=== PATIENT | female | born 2000 | race Caucasian/White ===

== ENCOUNTER 2024-12-21 10:09 | Inpatient (IN) | payer OTHER, SELFPAY ==
[2024-12-21] VITALS (18 sets, daily range): BP systolic 107–165; BP diastolic 63–94; PULSE 85–130; RESP 14–23; TEMP 36.2–36.9; O2SAT 97–100; BMI 23.6
--- NOTE | ~2024-12-21 | XR_ITS ---
EXAMINATION: XR chest 2V DATE: 12/21/2024 12:29 INDICATION: Dyspnea. Tachypnea. TECHNIQUE: Frontal and lateral views of the chest were obtained. COMPARISON: None. FINDINGS: There is no pneumonia, pleural effusion, or pneumothorax. The heart size is normal. IMPRESSION: 1. No acute cardiopulmonary disease. Reviewed, dictated and finalized at location B.
--- NOTE | 2024-12-21 10:32 | ECG_ITS ---
Test Date: 2024-12-21 10:36:19 Measurements Intervals [place] Rate: 137 P: 70 NE: 125 QRS: 68 QRSD: 74 T: 39 QT: 330 QTc: 499 Interpretive Statements SINUS TACHYCARDIA LOW QRS VOLTAGE IN PRECORDIAL LEADS [QRS DEFLECTION < 1.0 mV IN CHEST LEADS] SEPTAL MYOCARDIAL INFARCTION , OF INDETERMINATE AGE [40+ ms Q WAVE IN V1/V2] NONSPECIFIC ST AND T WAVE ABNORMALITY No previous ECG available for comparison Electronically Signed On 12-21-2024 13:44:57 CDT by Eileen Jiang M.D.
[2024-12-21] MEDS: SODIUM CHLORIDE 0.9% IV 2,000 ML 999 ML IV CONT (12:01)
[2024-12-21 12:11] LABS: Basophils Percent Auto 0.5 % (0.2-1.2); Hematocrit 42.3 % (37.0-47.0); Hemoglobin 14.6 g/dL (12.0-15.0); Immature Granulocyte Absolute 0.01 K/mm3 (0.00-0.031); Immature Granulocyte Percent A 0.1 % (0-0.5); Lymphocytes Absolute Auto 2.48 K/mm3 (0.9-3.2); Lymphocytes Percent Auto 31.5 % (18.3-44.2); Mean Corpuscular HGB Conc 34.5 g/dl (32-36); Mean Corpuscular Hemoglobin 31.7 pg (26-34); Mean Platelet Volume 9.5 fl (7.4-10.4); Monocytes Absolute Auto 0.4 K/mm3 (0.1-0.6); Monocytes Percent Auto 4.4 % (2.6-8.5); Neutrophils Percent Auto 63.5 % (45.5-73.1); Platelet Count Result 370 k/mm3 (150-375); Red Cell Distribution Width 13.2 % (11.5-14.5); White Blood Count 7.9 K/mm3 (4.5-10.0)
[2024-12-21 12:15] LABS: Glucose Point of Care 254 mg/dl (65-105)
[2024-12-21 12:20] LABS: Lactic Acid Reflex 0.8 mmol/L (0.7-2.0)
[2024-12-21 12:21] LABS: Alanine Aminotransferase 10 U/L (6-35); Albumin Level 4.6 g/dL (3.5-5.1); Alkaline Phosphatase 100 U/L (38-126); Anion Gap 21 mmol/L (4-12); Aspartate Amino Transferase 13 U/L (14-36); Bilirubin,Total 0.5 mg/dL (0.2-1.3); Blood Urea Nitrogen 7 mg/dL (7-17); Calcium 9.1 mg/dL (8.4-10.2); Carbon Dioxide 11 mmol/L (22-30); Chloride 105 mmol/L (98-107); Estimated CRCL calculation 123 ml/min; Estimated Glomerular Filt Rate > 60; Glucose 282 mg/dL (65-110); Lipase 57 U/L (23-300); Phosphorus 1.8 mg/dL (2.5-4.5); Potassium 3.8 mmol/L (3.4-5.0); Sodium 137 mmol/L (137-145)
[2024-12-21 12:25] LABS: Fractional Inspired Oxygen 21 %; HCO3 VBG 13.6 mEq/l (24.0-30.0); PCO2 VBG 32.9 mmHg (42.0-48.0); PO2 VBG < 27.0 mmHg (35.0-45.0)
[2024-12-21 12:26] LABS: Device ROOM AIR; pH VBG 7.233 (7.300-7.400)
[2024-12-21 12:33] LABS: NT Pro B Type Natriuretic Pept < 20 pg/mL (19.9-100); Troponin I < 0.012 ng/mL (0.000-0.034)
[2024-12-21 12:49] LABS: Add Urine Microscopic? YES; Appearance Urine Cloudy (Clear); Bacteria Urine 2+ /hpf; Bilirubin Urine Negative (Negative); Blood Urine Negative (Negative); Color Urine Yellow (Yellow); Glucose Urine UA 3+ mg/dL (Negative); Ketones Urine 4+ mg/dL (Negative); Leukocyte Esterase Ur Trace LEU/UL (Negative); Need Manual Microscopic Reviewed; Nitrate Urine Negative (Negative); Non Pathogenic Casts >20; Protein Urine 1+ mg/dL (Negative); RBC Urine 0-2 /hpf (0-2); Specific Grav Ur 1.037 (1.001-1.035); Squamous Epithelial Cell Urine Many /hpf (Few); Urobilinogen Urine 0.2 mg/dL (<2.0); WBC Urine 51-100 /hpf (0-3)
[2024-12-21 12:51] LABS: Influenza A QL RT-PCR Negative (Negative); Influenza B QL RT-PCR Negative (Negative); RSV RNA, RT-PCR Negative (Negative); SARS-CoV-2 RNA PCR Negative (Negative)
[2024-12-21 12:52] LABS: Thyroid Stimulating Hormone Reflex 0.436 uIU/mL (0.465-4.68)
[2024-12-21 13:11] LABS: BEDSIDEPREGUCG Negative (Negative)
[2024-12-21 13:15] LABS: Amphetamine Screen Urine Negative (Negative); Barbiturate Screen Urine Negative (Negative); Benzodiazepines Screen Urine Negative (Negative); Cannabinoid Screen Urine Negative (Negative); Cocaine Screen Urine Negative (Negative); Methadone Screen Urine Negative (Negative); Opiate Screen Urine Negative (Negative); Phencyclidine Screen Urine Negative (Negative)
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
--- OUTSIDE RECORDS SUMMARY | 2024-12-21 13:15 | XMS_ITS | Encounter Summary ---
Author Organization [facility] Healthcare Address [address] [place] [address] Care Team Providers Care Lead Enterprise Architect Name Role Phone Kwan Dennis MD Primary Care Provider [phone] Encounter Details Date Type Department Care Team (Late st Contact Info) Description 11/28/2024 Results Follow-Up [facility] at [address] [phone] Kathy Wade PRACTICE ARCHITECT [address] [place] [id number] Social History Tobacco Use Types Packs/Day Years Used Date Smoking Tobacco: Never Smokeless Tobacco: Never Alcohol Use Standard Drinks/Week Comments No 0 [...] on file Legal Sex Female 2:26 AM ELEVATOR DISPATCHER Gender Identity Not on file Sexual Orientation Not on file documented as of this encounter Plan of Treatment Not on file documented as of this encounter Visit Diagnoses Not on filedocumented in this encounter Care Teams Lead Enterprise Architect Relationship Specialty Start Date End Date Kwan Dennis MD [address] [place] [address] PCP - General Family Medicine 01/28/22 documented as of this encounter
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
[2024-12-21 13:18] LABS: INR 1.1; Partial Thromboplastin Time 21.9 Seconds (22.3-36.8); Prothrombin Time 14.5 Seconds (11.1-14.7)
[2024-12-21 13:27] LABS: D Dimer < 0.27 ug/mL (<0.48)
[2024-12-21 14:08] LABS: Total Triiodothyronine (T3) 0.81 NG/ML (0.97-1.69)
[2024-12-21] MEDS: levoFLOXacin 750 MG/D5W 150 ML 750 MG/150 ML BAG 100 MG IVPB (14:13)
[2024-12-21] MEDS: SODIUM CHLORIDE 0.9% IV 1,000 ML 999 ML IV CONT (14:14)
--- NOTE | 2024-12-21 14:52 | ECG_ITS ---
Test Date: 2024-12-21 15:06:26 Measurements Intervals [place] Rate: 108 P: 48 CA: 124 QRS: 48 QRSD: 74 T: 24 QT: 339 QTc: 455 Interpretive Statements SINUS TACHYCARDIA POSSIBLE LEFT ATRIAL ENLARGEMENT [-0.1mV P WAVE IN V1/V2] LOW QRS VOLTAGE IN PRECORDIAL LEADS [QRS DEFLECTION < 1.0 mV IN CHEST LEADS] SEPTAL MYOCARDIAL INFARCTION , OF INDETERMINATE AGE [40+ ms Q WAVE IN V1/V2] Compared to ECG 12/21/2024 10:36:19 ST (T wave) deviation no longer present Myocardial infarct finding still present Electronically Signed On 12-22-2024 13:55:25 CDT by Dangelo Masterson M.D.
--- NOTE | 2024-12-21 15:00 | PC.NURSE ---
Pt was given a sandwich, sugar free pudding, pretzels and some water.
[2024-12-21 15:22] LABS: Troponin I < 0.012 ng/mL (0.000-0.034)
[2024-12-21 15:52] LABS: Anion Gap 13 mmol/L (4-12); Blood Urea Nitrogen 5 mg/dL (7-17); Calcium 6.8 mg/dL (8.4-10.2); Carbon Dioxide 14 mmol/L (22-30); Chloride 111 mmol/L (98-107); Estimated CRCL calculation 173 ml/min; Estimated Glomerular Filt Rate > 60; Glucose 202 mg/dL (65-110); Potassium 3.2 mmol/L (3.4-5.0); Sodium 138 mmol/L (137-145)
--- NOTE | 2024-12-21 16:04 | ED.GENADULT ---
HPI - General Adult General Chief complaint: Arrhythmia/Palpitations Stated complaint: SOB, tachycardic Time Seen by Provider: 12/21/24 11:03 History of Present Illness HPI narrative: This is a 24-year-old female with history of type 1 diabetes presenting with shortness of breath x1 week. Two days ago the patient developed palpitations and left-sided chest pain. It is an achy pain in the left side of her chest that is nonradiating, moderate intensity constant. Patient denies fevers chills or abdominal pain. She has been urinating more often than usual. She has recently been sick with a sinus infection and her has been diagnosed with strep throat. Her sugars have been running higher than normal in the mid 200s. She has been taking more insulin to compensate. Related Data Allergies Allergy/AdvReac Type Severity Reaction Status Date / Time cefuroxime Allergy Mild rash Verified 12/21/24 11:53 codeine Allergy Mild rash Verified 12/21/24 11:53 Exam Narrative: APPEARANCE: No apparent distress. Head: atraumatic. EYES: EOMI, NOSE: Atraumatic NECK: Trachea midline RESPIRATORY: Tachypnea, clear to auscultation CARDIOVASCULAR: Tachycardic, no peripheral edema ABDOMINAL: Non-distended soft nontender, left CVA tenderness MUSCULOSKELETAl: No obvious deformities NEURO: Alert. Moving 4/4 extremities SKIN:: Hot to touch PSYCHIATRIC: Normal affect Course Vital Signs Vital signs: Vital Signs Temperature 97.2 F L 12/21/24 10:43 Pulse Rate 130 H 12/21/24 10:43 Respiratory Rate 18 12/21/24 10:43 Blood Pressure 108/69 12/21/24 10:43 Pulse Oximetry 100 12/21/24 10:43 Temperature 98 F 12/21/24 11:12 Pulse Rate 107 H 12/21/24 15:46 Respiratory Rate 18 12/21/24 15:46 Blood Pressure 116/74 12/21/24 15:46 Pulse Oximetry 98 12/21/24 15:46 Oxygen Delivery Room Air 12/21/24 15:46 Medical Decision Making [facility] Narrative Medical decision making narrative: -Course: 24-year-old female with type 1 diabetes presenting with tachypnea. Cardiopulmonary causes of dyspnea less likely with a negative chest x-ray, (-) D-dimer,bnp,trop,viral swabs. Urine was indicative of infection w/ L CVA tenderness consistent w/ pyelonephritis pyelonephritis. Patient is acidotic within initial anion gap of 21/bicarb 11 and +4 ketones in her urine. Patient given 3 L of fluid and antibiotics and repeated her BMP. No real improvement. Calcium phosphorus of been repleted. Patient has been initiated on the DKA protocol will be admitted the ICU for further management. Case discussed with Dionna and Dr. Michaud and the patient will be admitted. Vital Signs Vital Signs: Vital Signs Temperature 97.2 F L 12/21/24 10:43 Pulse Rate 130 H 12/21/24 10:43 Respiratory Rate 18 12/21/24 10:43 Blood Pressure 108/69 12/21/24 10:43 Pulse Oximetry 100 12/21/24 10:43 Temperature 98 F 12/21/24 11:12 Pulse Rate 107 H 12/21/24 15:46 Respiratory Rate 18 12/21/24 15:46 Blood Pressure 116/74 12/21/24 15:46 Pulse Oximetry 98 12/21/24 15:46 Oxygen Delivery Room Air 12/21/24 15:46 Lab Data 12/21/24 12:05 12/21/24 15:35 Labs: Lab Results 12/21/24 12/21/24 12/21/24 Range/Units 12:05 12:12 12:29 WBC 7.9 (4.5-10.0) K/mm3 RBC 4.60 (4.2-5.4) M/mm3 Hgb 14.6 (12.0-15.0) g/dL Hct 42.3 (37.0-47.0) % MCV 92.0 (80-100) fl MCH 31.7 (26-34) pg MCHC 34.5 (32-36) g/dl RDW 13.2 (11.5-14.5) % Plt Count 370 (150-375) k/mm3 MPV 9.5 (7.4-10.4) fl Immature Gran % (Auto) 0.1 (0-0.5) % Neut % (Auto) 63.5 (45.5-73.1) % Lymph % (Auto) 31.5 (18.3-44.2) % [place] % (Auto) 4.4 (2.6-8.5) % Eos % (Auto) 0.0 (0-4.4) % Baso % (Auto) 0.5 (0.2-1.2) % Lymph # (Auto) 2.48 (0.9-3.2) K/mm3 [place] # (Auto) 0.4 (0.1-0.6) K/mm3 Eos # (Auto) 0.0 (0-0.3) K/mm3 Baso # (Auto) 0.0 (0.0-0.1) K/mm3 Abs Immat Gran (auto) 0.01 (0.00-0.031) K/mm3 Absolute Neuts (auto) 5.0 (1.3-6.7) K/mm3 Absolute Nucleated RBC 0.000 (0.0-0.012) K/mm3 Nucleated RBC % 0.0 (0.0-0.2) % PT (11.1-14.7) Seconds INR APTT (22.3-36.8) Seconds D-Dimer (<0.48) ug/mL Sodium 137 (137-145) mmol/L Potassium 3.8 (3.4-5.0) mmol/L Chloride 105 (98-107) mmol/L Carbon Dioxide 11 L (22-30) mmol/L Anion Gap 21 H (4-12) mmol/L BUN 7 (7-17) mg/dL Creatinine 0.49 L (0.7-1.0) mg/dL Estim Creat Clear Calc 123 ml/min Estimated GFR > 60 (59 - ) Glucose 282 H (65-110) mg/dL POC Capillary Glucose 254 H (65-105) mg/dl Lactic Acid 0.8 (0.7-2.0) mmol/L Calcium 9.1 (8.4-10.2) mg/dL Phosphorus 1.8 L (2.5-4.5) mg/dL Magnesium 2.0 (1.6-2.3) mg/dL Total Bilirubin 0.5 (0.2-1.3) mg/dL AST 13 L (14-36) U/L ALT 10 (6-35) U/L Alkaline Phosphatase 100 (38-126) U/L Troponin I < 0.012 (0.000-0.034) ng/mL NT-Pro-B Natriuret Pep < 20 (19.9-100) pg/mL Total Protein 8.0 (6.3-8.2) g/dL Albumin 4.6 (3.5-5.1) g/dL Lipase 57 (23-300) U/L TSH (Reflex) 0.436 L (0.465-4.68) uIU/mL Free T4 1.10 (0.78-2.19) ng/dL Total T3 0.81 L (0.97-1.69) NG/ML Urine Color Yellow (Yellow) Urine Appearance Cloudy H (Clear) Urine pH 6.0 (5.0-9.0) Ur Specific [place] 1.037 H (1.001-1.035) Urine Protein 1+ H (Negative) mg/dL Urine Glucose (UA) 3+ H (Negative) mg/dL Urine Ketones 4+ H (Negative) mg/dL Ur Blood (Man) Negative (Negative) Urine Nitrate Negative (Negative) Urine Bilirubin Negative (Negative) Urine Urobilinogen 0.2 (<2.0) mg/dL Add Ur Microanalysis Reviewed Leukocyte Esterase Rfl Trace H (Negative) ESAU/UL Urine RBC 0-2 (0-2) /hpf Urine WBC 51-100 H (0-3) /hpf Ur Squamous Epith Cells Many H (Few) /hpf Urine Bacteria 2+ H /hpf Urine Casts >20 POC Urine HCG, Qual (Negative) Urine Opiates Screen Negative (Negative) Urine Methadone Screen Negative (Negative) Ur Barbiturates Screen Negative (Negative) Ur Phencyclidine Scrn Negative (Negative) Ur Amphetamine Screen Negative (Negative) U Benzodiazepines Scrn Negative (Negative) Urine Cocaine Screen Negative (Negative) U Cannabinoids Screen Negative (Negative) Influenza A (RT-PCR) Negative (Negative) Influenza B (RT-PCR) Negative (Negative) RSV (RT-PCR) Negative (Negative) SARS-CoV-2 RNA (RT-PCR) Negative (Negative) 12/21/24 12/21/24 12/21/24 Range/Units 12:59 13:09 14:50 WBC (4.5-10.0) K/mm3 RBC (4.2-5.4) M/mm3 Hgb (12.0-15.0) g/dL Hct (37.0-47.0) % MCV (80-100) fl MCH (26-34) pg MCHC (32-36) g/dl RDW (11.5-14.5) % Plt Count (150-375) k/mm3 MPV (7.4-10.4) fl Immature Gran % (Auto) (0-0.5) % Neut % (Auto) (45.5-73.1) % Lymph % (Auto) (18.3-44.2) % [place] % (Auto) (2.6-8.5) % Eos % (Auto) (0-4.4) % Baso % (Auto) (0.2-1.2) % Lymph # (Auto) (0.9-3.2) K/mm3 [place] # (Auto) (0.1-0.6) K/mm3 Eos # (Auto) (0-0.3) K/mm3 Baso # (Auto) (0.0-0.1) K/mm3 Abs Immat Gran (auto) (0.00-0.031) K/mm3 Absolute Neuts (auto) (1.3-6.7) K/mm3 Absolute Nucleated RBC (0.0-0.012) K/mm3 Nucleated RBC % (0.0-0.2) % PT 14.5 (11.1-14.7) Seconds INR 1.1 APTT 21.9 L (22.3-36.8) Seconds D-Dimer < 0.27 (<0.48) ug/mL Sodium (137-145) mmol/L Potassium (3.4-5.0) mmol/L Chloride (98-107) mmol/L Carbon Dioxide (22-30) mmol/L Anion Gap (4-12) mmol/L BUN (7-17) mg/dL Creatinine (0.7-1.0) mg/dL Estim Creat Clear Calc ml/min Estimated GFR (59 - ) Glucose (65-110) mg/dL POC Capillary Glucose (65-105) mg/dl Lactic Acid (0.7-2.0) mmol/L Calcium (8.4-10.2) mg/dL Phosphorus (2.5-4.5) mg/dL Magnesium (1.6-2.3) mg/dL Total Bilirubin (0.2-1.3) mg/dL AST (14-36) U/L ALT (6-35) U/L Alkaline Phosphatase (38-126) U/L Troponin I < 0.012 (0.000-0.034) ng/mL NT-Pro-B Natriuret Pep (19.9-100) pg/mL Total Protein (6.3-8.2) g/dL Albumin (3.5-5.1) g/dL Lipase (23-300) U/L TSH (Reflex) (0.465-4.68) uIU/mL Free T4 (0.78-2.19) ng/dL Total T3 (0.97-1.69) NG/ML Urine Color (Yellow) Urine Appearance (Clear) Urine pH (5.0-9.0) Ur Specific [place] (1.001-1.035) Urine Protein (Negative) mg/dL Urine Glucose (UA) (Negative) mg/dL Urine Ketones (Negative) mg/dL Ur Blood (Man) (Negative) Urine Nitrate (Negative) Urine Bilirubin (Negative) Urine Urobilinogen (<2.0) mg/dL Add Ur Microanalysis Leukocyte Esterase Rfl (Negative) ESAU/UL Urine RBC (0-2) /hpf Urine WBC (0-3) /hpf Ur Squamous Epith Cells (Few) /hpf Urine Bacteria /hpf Urine Casts POC Urine HCG, Qual Negative (Negative) Urine Opiates Screen (Negative) Urine Methadone Screen (Negative) Ur Barbiturates Screen (Negative) Ur Phencyclidine Scrn (Negative) Ur Amphetamine Screen (Negative) U Benzodiazepines Scrn (Negative) Urine Cocaine Screen (Negative) U Cannabinoids Screen (Negative) Influenza A (RT-PCR) (Negative) Influenza B (RT-PCR) (Negative) RSV (RT-PCR) (Negative) SARS-CoV-2 RNA (RT-PCR) (Negative) 12/21/24 Range/Units 15:35 WBC (4.5-10.0) K/mm3 RBC (4.2-5.4) M/mm3 Hgb (12.0-15.0) g/dL Hct (37.0-47.0) % MCV (80-100) fl MCH (26-34) pg MCHC (32-36) g/dl RDW (11.5-14.5) % Plt Count (150-375) k/mm3 MPV (7.4-10.4) fl Immature Gran % (Auto) (0-0.5) % Neut % (Auto) (45.5-73.1) % Lymph % (Auto) (18.3-44.2) % [place] % (Auto) (2.6-8.5) % Eos % (Auto) (0-4.4) % Baso % (Auto) (0.2-1.2) % Lymph # (Auto) (0.9-3.2) K/mm3 [place] # (Auto) (0.1-0.6) K/mm3 Eos # (Auto) (0-0.3) K/mm3 Baso # (Auto) (0.0-0.1) K/mm3 Abs Immat Gran (auto) (0.00-0.031) K/mm3 Absolute Neuts (auto) (1.3-6.7) K/mm3 Absolute Nucleated RBC (0.0-0.012) K/mm3 Nucleated RBC % (0.0-0.2) % PT (11.1-14.7) Seconds INR APTT (22.3-36.8) Seconds D-Dimer (<0.48) ug/mL Sodium 138 (137-145) mmol/L Potassium 3.2 L (3.4-5.0) mmol/L Chloride 111 H (98-107) mmol/L Carbon Dioxide 14 L (22-30) mmol/L Anion Gap 13 H (4-12) mmol/L BUN 5 L (7-17) mg/dL Creatinine 0.33 L (0.7-1.0) mg/dL Estim Creat Clear Calc 173 ml/min Estimated GFR > 60 (59 - ) Glucose 202 H (65-110) mg/dL POC Capillary Glucose (65-105) mg/dl Lactic Acid (0.7-2.0) mmol/L Calcium 6.8 L (8.4-10.2) mg/dL Phosphorus (2.5-4.5) mg/dL Magnesium (1.6-2.3) mg/dL Total Bilirubin (0.2-1.3) mg/dL AST (14-36) U/L ALT (6-35) U/L Alkaline Phosphatase (38-126) U/L Troponin I (0.000-0.034) ng/mL NT-Pro-B Natriuret Pep (19.9-100) pg/mL Total Protein (6.3-8.2) g/dL Albumin (3.5-5.1) g/dL Lipase (23-300) U/L TSH (Reflex) (0.465-4.68) uIU/mL Free T4 (0.78-2.19) ng/dL Total T3 (0.97-1.69) NG/ML Urine Color (Yellow) Urine Appearance (Clear) Urine pH (5.0-9.0) Ur Specific [place] (1.001-1.035) Urine Protein (Negative) mg/dL Urine Glucose (UA) (Negative) mg/dL Urine Ketones (Negative) mg/dL Ur Blood (Man) (Negative) Urine Nitrate (Negative) Urine Bilirubin (Negative) Urine Urobilinogen (<2.0) mg/dL Add Ur Microanalysis Leukocyte Esterase Rfl (Negative) ESAU/UL Urine RBC (0-2) /hpf Urine WBC (0-3) /hpf Ur Squamous Epith Cells (Few) /hpf Urine Bacteria /hpf Urine Casts POC Urine HCG, Qual (Negative) Urine Opiates Screen (Negative) Urine Methadone Screen (Negative) Ur Barbiturates Screen (Negative) Ur Phencyclidine Scrn (Negative) Ur Amphetamine Screen (Negative) U Benzodiazepines Scrn (Negative) Urine Cocaine Screen (Negative) U Cannabinoids Screen (Negative) Influenza A (RT-PCR) (Negative) Influenza B (RT-PCR) (Negative) RSV (RT-PCR) (Negative) SARS-CoV-2 RNA (RT-PCR) (Negative) ABG Data ABG results: 12/21/24 12:21 VBG pH 7.233 L* VBG pCO2 32.9 L VBG pO2 < 27.0 L VBG HCO3 13.6 L O2 Delivery Device Room air O2 Liters/Min Not Reportable FiO2 21 Critical Care Time Critical Care Time Critical Care Time: Yes Total Critical Care Time: 45 Discharge Plan Discharge Clinical Impression: Pyelonephritis, DKA (diabetic ketoacidosis) Patient Disposition: Still a Patient Condition: Stable Patient Language: Latvian Follow-up/Referrals: UNKNOWN,DOCTOR [Primary Care Provider] -
[2024-12-21 16:46] LABS: Glucose Point of Care 282 mg/dl (65-105)
[2024-12-21] MEDS: POTASSIUM/PHOSPHORUS/SODIUM 1.5 GM PACKET 1 PACKET PO (17:06)
[2024-12-21] MEDS: POTASSIUM CHLORIDE INJ 40 MEQ in SODIUM CHLORIDE 0.9% IV 500 ML 130 MEQ IVPB (17:06)
[2024-12-21] MEDS: CALCIUM GLUC 2,000 MG/NS 100ML 2,000 MG/100 ML BAG 100 MG IVPB (17:06)
[2024-12-21] MEDS: LACTATED RINGERS 1,000 ML 250 ML IV CONT (17:07)
[2024-12-21] MEDS: POTASSIUM CHLORIDE 20 MEQ PACKET (FOR LIQUID) 40 MEQ PO (17:07)
--- NOTE | 2024-12-21 17:40 | P.HP_ITS ---
H&P: HPI History of Present Illness Date/Time: 12/21/24 17:40 Chief Complaint: Shortness of breath racing heart. Narrative: This is a pleasant 24-year-old female type 1 diabetes mellitus who presented to the emergency department with complaints of shortness of breath and racing heart. The patient provides the following history. Nearly a month ago she had a sinus infection and took antibiotics however does not feel as though she ever got back to baseline. Her diabetes is not well controlled with a reported recent hemoglobin A1c of 12.1% however the last week or so however she has noticed that her glucose has been higher than usual. Despite increasing her insulin boluses, her glucose has remained high. These past several days she has developed sensations of racing heart and mild shortness of breath. She also reports urinary urgency and frequency as well as aching discomfort in the left mid back. She has had chills but denies fever and sweats. She also denies blurry vision, sore throat, cough, chest and pleuritic pain, vomiting, and diarrhea. In the ED: Vital signs on arrival include a temperature of 97.2?, blood pressure 108/69, pulse 130, respiratory 18, SpO2 100% on room air. VBG showed a pH of 7.233, pCO2 32.9, HC03 13.6. Labs were significant for WBC count 7.9, hemoglobin 14.6, sodium 137, potassium 3.8, chloride 105, carbon dioxide 11, anion gap 21, creatinine 0.49, glucose 282, phosphorus 1.8. Urinalysis was positive for 1+ protein, 3+ glucose, 4+ ketones, trace leukocyte esterase, 50 to 100 WBC, 2+ bacteria, and many squamous cells. Chest x-ray showed no acute cardiopulmonary disease. She was given a 3000 mL normal saline bolus and potassium supplementation. She was also given levofloxacin for suspected urinary tract infection. She is being admitted to the ICU in this setting with DKA although she is not yet on insulin drip until her potassium has corrected. Review of Systems Review of Systems: 12 systems were reviewed and are negativ e except for as per HPI. [facility] Past Medical History Medical History (Updated 12/21/24 @ 21:37 by Carissa Quiñones PA-C) Type I diabetes mellitus Surgical History Surgical History (Updated 12/21/24 @ 21:37 by Carissa Quiñones PA-C) History of section History of eye surgery several eye surgeries as a child for what sounds like strabismus Family History Family History Mother Breast cancer Thyroid nodule Graves' disease Jeanne's disease Hypothyroidism Social History Social History (Updated 12/21/24 @ 21:38 by Carissa Quiñones PA-C) Social History: Surrogate medical decision maker: Miki Rigo, spouse. Code status: Full code. Smoking status: Never smoker Alcohol intake: never Substance use: never Do You Feel Safe in your Home?: Yes Lack of Transportation: No Lack of Food: Never True Current Housing: I Have Housing Concerned About Future Housing: No Difficulty Paying Gas/Electric Bills: No Difficulty Paying for Meds: No Currently Unemployed: No Education: Trade/Vocational Certificate Difficulty w/ Childcare or Family Care: No Additional living arrangements comments: Lives with and their 6-year-old daughter in [place]. Spiritual care concerns: No Meds Home Medications and Allergies Home Medications ?Medication ?Instructions ?Recorded ?Confirmed ?Type insulin lispro 100 unit/mL 1 sliding scale dose subcut 12/21/24 12/21/24 History subcutaneous solution (Humalog USEASDIRECTD U-100 Insulin) Allergies Allergy/AdvReac Type Severity Reaction Status Date / Time cefuroxime Allergy Mild rash Verified 12/21/24 18:33 codeine Allergy Mild rash Verified 12/21/24 18:33 Vital Signs Vital Signs - 24 hr 12/21/24 10:43 12/21/24 11:11 12/21/24 11:12 Temperature 97.2 F L 98 F Pulse Rate 130 H 115 H 110 H Respiratory Rate 18 18 23 H Blood Pressure 108/69 128/72 128/72 Pulse Oximetry 100 100 100 Oxygen Delivery Room Air 12/21/24 11:18 12/21/24 11:30 12/21/24 13:09 Temperature Pulse Rate 101 H 102 H Respiratory Rate 16 15 Blood Pressure 113/77 120/71 Pulse Oximetry 100 100 100 Oxygen Delivery Room Air 12/21/24 13:30 12/21/24 14:00 12/21/24 14:16 Temperature Pulse Rate 97 95 97 Respiratory Rate 17 16 15 Blood Pressure 126/75 120/75 120/75 Pulse Oximetry 100 100 100 Oxygen Delivery 03/12/25 14:30 12/21/24 15:46 12/21/24 15:46 Temperature Pulse Rate 95 107 H Respiratory Rate 14 18 Blood Pressure 111/68 116/74 Pulse Oximetry 99 98 98 Oxygen Delivery Room Air 12/21/24 17:11 Temperature Pulse Rate 104 H Respiratory Rate 15 Blood Pressure 107/63 Pulse Oximetry 100 Oxygen Delivery Exam Narrative: General: Mildly ill-appearing female sitting up in bed in no acute distress. Weight: 56.7 kg. BMI: 23.6. HEENT: PERRL, EOMI. Sclera anicteric. Tacky mucous membranes. Neck: Supple. Respiratory: Lungs are clear to auscultation bilaterally. Cardiovascular: Tachycardic with normal S1-S2. Gastrointestinal: Abdomen is soft, nontender, and nondistended with positive bowel sounds. Left-sided CVA tenderness. Skin: Warm and dry. Extremities: No cyanosis, clubbing, or edema. Radial and pedal pulses intact. Neurological: Alert. Cranial nerves 2-12 are grossly intact. No gross focal deficits to casual conversation. Psychiatric: Pleasant and cooperative with normal mood and affect. Judgment and insight intact. H&P: Results Labs Labs: Short CBC 12/21/24 Range/Units 12:05 WBC 7.9 (4.5-10.0) K/mm3 Hgb 14.6 (12.0-15.0) g/dL Hct 42.3 (37.0-47.0) % Plt Count 370 (150-375) k/mm3 BMP 12/21/24 12/21/24 12:05 15:35 Sodium 137 138 Potassium 3.8 3.2 L Chloride 105 111 H Carbon Dioxide 11 L 14 L BUN 7 5 L Creatinine 0.49 L 0.33 L Glucose 282 H 202 H Calcium 9.1 6.8 L Cardiac Enzymes 12/21/24 12/21/24 Range/Units 12:05 14:50 Troponin I < 0.012 < 0.012 (0.000-0.034) ng/mL Liver Function 12/21/24 Range/Units 12:05 Total Bilirubin 0.5 (0.2-1.3) mg/dL AST 13 L (14-36) U/L ALT 10 (6-35) U/L Alkaline Phosphatase 100 (38-126) U/L Albumin 4.6 (3.5-5.1) g/dL Urine 12/21/24 Range/Units 12:29 Urine Color Yellow (Yellow) Urine Appearance Cloudy H (Clear) Urine pH 6.0 (5.0-9.0) Ur Specific [place] 1.037 H (1.001-1.035) Urine Protein 1+ H (Negative) mg/dL Urine Glucose (UA) 3+ H (Negative) mg/dL Impressions Chest X-Ray 12/21/24 12:32 IMPRESSION: 1. No acute cardiopulmonary disease. ABG ABG results: 12/21/24 12:21 VBG pH 7.233 L* VBG pCO2 32.9 L VBG pO2 < 27.0 L VBG HCO3 13.6 L O2 Delivery Device Room air O2 Liters/Min Not Reportable FiO2 21 Assessment and Plan Assessment and plan (1) Diabetic ketoacidosis: Code(s): E11.10 - Type 2 diabetes mellitus with ketoacidosis without coma Status: Acute Assessment and Plan: Patient presents with hyperglycemia, metabolic acidosis with elevated anion gap (21), and 4+ ketones in the urine. * Anion gap improved with 3 L normal saline though patient was then hypokalemic. * Potassium was replaced and repeat labs revealed closure of anion gap though serum CO2 was still 14. * Discussed with the historian dramatic arts, will give a Lantus dose equivalent to her basal rate to night. * Moderate dose sliding scale insulin q.4 hours throughout the night. (2) Urinary tract infection: Code(s): N39.0 - Urinary tract infection, site not specified Status: Acute Assessment and Plan: Patient complains of urinary frequency and has left CVA tenderness. Urinalysis was positive for leukocyte esterase, increased WBCs, and bacteria however moderate squamous cells noted. * Continue empiric levofloxacin. * Urine cultures pending. (3) Hypokalemia: Code(s): E87.6 - Hypokalemia Status: Acute Assessment and Plan: Potassium was replaced and will be monitored. (4) Type I diabetes mellitus: Code(s): E10.9 - Type 1 diabetes mellitus without complications Status: Acute Assessment and Plan: Patient is on insulin pump at home but is poorly controlled with reported A1c of 12.1% recently. * Lantus to be given this evening as detailed above. * Dietitian and informatics educator consulted. Quality VTE Prophylaxis VTE prophylaxis: pharmacologic ordered Hospitalist MIPS Advance Care Plan I have confirmed that the patient's Advanced Care Plan is present, code status is documented, or surrogate decision maker is listed in patient medical record.: Yes Medication Reconciliation I have utilized all available resources to obtain, update and review the patients current medications (includes all prescriptions, OTC, herbals, cannabis, and nutritional supplements).: Yes Critical Care Time Critical Care Time: Yes Total Critical Care Time: 50 Attestation: Due to a high probability of clinically significant, life threatening deterioration, the patient required my highest level of preparedness to intervene emergently and I personally spent this critical care time directly and personally managing the patient. This critical care time included obtaining a history; examining the patient; pulse oximetry; ordering and review of studies; arranging urgent treatment with development of a management plan; evaluation of patient's response to treatment; frequent reassessment; and discussions with other providers. It was exclusive of separately billable procedures and treating other patients and teaching time. Please see Assessment and Plan section and the rest of the note for further information on patient assessment and treatment.
[2024-12-21 18:19] LABS: Glucose Point of Care 238 mg/dl (65-105)
--- NOTE | 2024-12-21 18:19 | ADMGEN ---
This patient, Shaye Sierra, was admitted to Intensive Care Unit-9. Patient/family oriented to hospital policies and general routines including ID bracelet, bed and alarms, visiting hours, pain management, procedures, bathroom and other care routines, personal items, smoking policy, room service/diet, and visiting hours. Information on how to activate the Rapid Response Team has been discussed. Patient/Family are encouraged to report perceived risks to care and to ask questions if they do not understand what they are told or what they should do.
[2024-12-21 19:07] LABS: Glucose Point of Care 200 mg/dl (65-105)
[2024-12-21 20:01] LABS: MRSA (PCR) NOT DETECTED (NOT DETECTE)
[2024-12-21 20:10] LABS: Glucose Point of Care 210 mg/dl (65-105)
[2024-12-21 20:15] LABS: Anion Gap 12 mmol/L (4-12); Blood Urea Nitrogen 3 mg/dL (7-17); Carbon Dioxide 14 mmol/L (22-30); Chloride 110 mmol/L (98-107); Estimated CRCL calculation 143 ml/min; Estimated Glomerular Filt Rate > 60; Glucose 208 mg/dL (65-110); Sodium 136 mmol/L (137-145)
[2024-12-21 21:02] LABS: Glucose Point of Care 198 mg/dl (65-105)
[2024-12-21 21:29] LABS: Magnesium 1.6 mg/dL (1.6-2.3)
[2024-12-21] MEDS: LACTATED RINGERS 1,000 ML 75 ML IV CONT (21:48)
[2024-12-21 21:53] LABS: Glucose Point of Care 180 mg/dl (65-105)
[2024-12-21] MEDS: INSULIN GLARGINE (*BKC) 100 UNITS/ML 20 UNITS SUB-Q (22:37)
[2024-12-21] MEDS: ACETAMINOPHEN 325 MG TABLET 650 MG PO (22:50)
[2024-12-22] VITALS (10 sets, daily range): BP systolic 105–123; BP diastolic 73–84; PULSE 74–115; RESP 15–19; TEMP 36.7–37.1; O2SAT 98–100
[2024-12-22 01:42] LABS: Anion Gap 13 mmol/L (4-12); Calcium 7.6 mg/dL (8.4-10.2); Carbon Dioxide 14 mmol/L (22-30); Chloride 106 mmol/L (98-107); Estimated CRCL calculation 133 ml/min; Estimated Glomerular Filt Rate > 60; Glucose 189 mg/dL (65-110); Phosphorus 2.1 mg/dL (2.5-4.5); Potassium 3.2 mmol/L (3.4-5.0); Sodium 133 mmol/L (137-145)
[2024-12-22 01:43] LABS: Add Urine Microscopic? YES; Appearance Urine Clear (Clear); Bacteria Urine None Seen /hpf; Bilirubin Urine Negative (Negative); Blood Urine Negative (Negative); Color Urine Yellow (Yellow); Glucose Urine UA 3+ mg/dL (Negative); Ketones Urine 4+ mg/dL (Negative); Leukocyte Esterase Ur Trace LEU/UL (Negative); Nitrate Urine Negative (Negative); Non Pathogenic Casts 0-2; Protein Urine Negative (Negative); RBC Urine 0-2 /hpf (0-2); Specific Grav Ur 1.016 (1.001-1.035); Squamous Epithelial Cell Urine Occasional /hpf (Few); Urobilinogen Urine 0.2 mg/dL (<2.0); pH Urine 5.5 (5.0-9.0)
--- NOTE | 2024-12-22 01:53 | PC.NURSE ---
Call placed to Dr. Michaud regarding pt's BMP results, CO2, GAP, Potassium. No new orders at this time.
[2024-12-22] MEDS: POTASSIUM PHOS,M-BASIC-D-BASIC 40 MMOL in SODIUM CHLORIDE 0.9% IV 250 ML 43.89 MMOL IVPB (02:06)
[2024-12-22] MEDS: INSULIN ASPART (*BKC) 100 UNITS/ML SUB-Q (02:06)
[2024-12-22 02:09] LABS: Blood Urea Nitrogen < 2 mg/dL (7-17)
[2024-12-22 04:34] LABS: Glucose Point of Care 203 mg/dl (65-105)
[2024-12-22 06:29] LABS: Hematocrit 37.8 % (37.0-47.0); Hemoglobin 13.1 g/dL (12.0-15.0); Mean Corpuscular HGB Conc 34.7 g/dl (32-36); Mean Corpuscular Hemoglobin 31.8 pg (26-34); Mean Corpuscular Volume 91.7 fl (80-100); Mean Platelet Volume 9.4 fl (7.4-10.4); Platelet Count Result 275 k/mm3 (150-375); Red Blood Count 4.12 M/mm3 (4.2-5.4); Red Cell Distribution Width 13.3 % (11.5-14.5); White Blood Count 6.7 K/mm3 (4.5-10.0)
[2024-12-22 06:45] LABS: Alanine Aminotransferase 8 U/L (6-35); Alkaline Phosphatase 71 U/L (38-126); Anion Gap 14 mmol/L (4-12); Aspartate Amino Transferase 12 U/L (14-36); Bilirubin,Total 0.5 mg/dL (0.2-1.3); Calcium 7.5 mg/dL (8.4-10.2); Carbon Dioxide 14 mmol/L (22-30); Chloride 107 mmol/L (98-107); Estimated CRCL calculation 128 ml/min; Estimated Glomerular Filt Rate > 60; Glucose 186 mg/dL (65-110); Magnesium 1.5 mg/dL (1.6-2.3); Phosphorus 3.9 mg/dL (2.5-4.5); Potassium 3.7 mmol/L (3.4-5.0); Sodium 135 mmol/L (137-145)
[2024-12-22 06:49] LABS: Blood Urea Nitrogen < 2 mg/dL (7-17)
[2024-12-22] MEDS: ACETAMINOPHEN 325 MG TABLET 650 MG PO (06:49)
[2024-12-22 06:59] LABS: Glucose Point of Care 181 mg/dl (65-105)
--- NOTE | 2024-12-22 08:42 | P.CONIN_ITS ---
Assessment and Plan Assessment and plan (1) Urinary tract infection: Code(s): N39.0 - Urinary tract infection, site not specified Status: Acute Assessment and Plan: UA abnormal insisted of UTI. Patient on Levaquin that was started in the ER. I will check urine culture (2) Hypokalemia: Code(s): E87.6 - Hypokalemia Status: Acute Assessment and Plan: Patient is currently receiving replacement (3) Diabetic ketoacidosis: Code(s): E11.10 - Type 2 diabetes mellitus with ketoacidosis without coma Status: Acute Assessment and Plan: Patient presented with labs concerning of DKA. With initial IV insulin bolus and IV fluid bolus patient 9 gap had closed. Patient was started on subcutaneous insulin but overnight her anion gap has opened up again. And acidosis persists I will start patient on insulin infusion with IV fluids with dextrose I will order serial labs Replace electrolytes as needed Consult dietitian and health promotion educator Will plan to transition to patient's insulin pump directly once her anion gap is completely closed and acidosis improved. She may need increase in her basal rate of insulin on her insulin pump (4) Abnormal thyroid blood test: Code(s): R79.89 - Other specified abnormal findings of blood chemistry Status: Acute Assessment and Plan: TSH was low, free T4 was normal and free T3 level was low on check in the ER Patient states her physician regularly monitors her thyroid function and they have been normal as an outpatient. I requested patient to get them rechecked in 4 weeks as an outpatient to a certain whether thyroid function normalizes considering this may be due to current illness Plan DVT prophylaxis -Lovenox Nutrition -clear liquid diet Code Status - Full Code Total Critical Care Time - 30 minutes Due to a high probability of clinically significant, life threatening deterioration, the patient required my highest level of preparedness to intervene emergently and I personally spent this critical care time directly and personally managing the patient. This critical care time included obtaining a history; examining the patient; pulse oximetry; ordering and review of studies; arranging urgent treatment with development of a management plan; evaluation of patient's response to treatment; frequent reassessment; and discussions with other providers. It was exclusive of separately billable procedures and treating other patients and teaching time. Please see Assessment and Plan section and the rest of the note for further information on patient assessment and treatment Quality Control Lab Tech Consult Note Consult date: 12/22/24 Reason for consult: DKA, UTI HPI: Shaye Sierra is a 24 year old female female type 1 diabetes mellitus on insulin pump with basal rate of 0.8 units/hour presented to ER yesterday with complaints of shortness of breath and racing heart. Patient states that Nearly a month ago she had a sinus infection and took antibiotics however does not feel as though she ever got back to baseline. Her diabetes is not well controlled with a reported recent hemoglobin A1c of 12.1% in blood sugars often running above 200 despite her being on insulin pump. She was never on any steroids. Despite increasing her insulin boluses, her glucose has remained high. These past several days she has developed sensations of racing heart and mild shortness of breath. She also reports urinary urgency and frequency as well as aching discomfort in the left mid back. She has had chills but denies fever and sweats. She also denies blurry vision, sore throat, cough, chest and pleuritic pain, vomiting, and diarrhea. Workup in the ER showed Vital signs on arrival include a temperature of 97.2?, blood pressure 108/69, pulse 130, respiratory 18, SpO2 100% on room air. VBG showed a pH of 7.233, pCO2 32.9, HC03 13.6. Labs were significant for WBC count 7.9, hemoglobin 14.6, sodium 137, potassium 3.8, chloride 105, carbon dioxide 11, anion gap 21, creatinine 0.49, glucose 282, phosphorus 1.8. Urinalysis was positive for 1+ protein, 3+ glucose, 4+ ketones, trace leukocyte esterase, 50 to 100 WBC, 2+ bacteria, and many squamous cells. Chest x-ray showed no acute cardiopulmonary disease. She was given a 3000 mL normal saline bolus and potassium supplementation. She was also given levofloxacin for suspected urinary tract infection. She is being admitted to the ICU in this setting with DKA although she is not yet on insulin drip until her potassium has corrected. Upon arrival to ICU patient's anion gap had closed and decision was made to put patient on subcutaneous insulin. Patient was given Lantus and was started on sliding scale. Will repeat BMP showed opening up a benign gap. This morning patient states she feels much better and denies any new complaints. She states her symptoms have resolved. She is hungry and would like to eat food. Patient denies fever, chest pain, shortness of breath, cough, nausea vomiting, abdominal pain,, diarrhea, headache or constipation. All other systems were reviewed and were negative Review of Systems 2 Review of Systems: All systems reviewed & are unremarkable except as noted in HPI and below (HPI) [facility] Past Medical History Medical History Type I diabetes mellitus Surgical History Surgical History History of section History of eye surgery several eye surgeries as a child for what sounds like strabismus Family History Family History Mother Breast cancer Thyroid nodule Graves' disease Jeanne's disease Hypothyroidism Social History Social History Social History: Surrogate medical decision maker: Miki Sierra, spouse. Code status: Full code. Smoking status: Never smoker Alcohol intake: never Substance use: never Do You Feel Safe in your Home?: Yes Lack of Transportation: No Lack of Food: Never True Current Housing: I Have Housing Concerned About Future Housing: No Difficulty Paying Gas/Electric Bills: No Difficulty Paying for Meds: No Currently Unemployed: No Education: Trade/Vocational Certificate Difficulty w/ Childcare or Family Care: No Additional living arrangements comments: Lives with and their 6-year-old daughter in [place]. Spiritual care concerns: No Meds Home Medications and Allergies Home Medications ?Medication ?Instructions ?Recorded ?Confirmed ?Type insulin lispro 100 unit/mL 1 sliding scale dose subcut 12/21/24 12/21/24 History subcutaneous solution (Humalog USEASDIRECTD U-100 Insulin) Allergies Allergy/AdvReac Type Severity Reaction Status Date / Time cefuroxime Allergy Mild rash Verified 12/21/24 18:33 codeine Allergy Mild rash Verified 12/21/24 18:33 Vital Signs Vital Signs - 24 hr 12/21/24 10:43 12/21/24 11:11 12/21/24 11:12 Temperature 36.2 C L 36.6 C Pulse Rate 130 H 115 H 110 H Respiratory Rate 18 18 23 H Blood Pressure 108/69 128/72 128/72 Pulse Oximetry 100 100 100 Oxygen Delivery Room Air Fraction of Inspired Oxygen 12/21/24 11:18 12/21/24 11:30 12/21/24 13:09 Temperature Pulse Rate 101 H 102 H Respiratory Rate 16 15 Blood Pressure 113/77 120/71 Pulse Oximetry 100 100 100 Oxygen Delivery Room Air Fraction of Inspired Oxygen 12/21/24 13:30 12/21/24 14:00 12/21/24 14:16 Temperature Pulse Rate 97 95 97 Respiratory Rate 17 16 15 Blood Pressure 126/75 120/75 120/75 Pulse Oximetry 100 100 100 Oxygen Delivery Fraction of Inspired Oxygen 12/21/24 14:30 12/21/24 15:46 12/21/24 15:46 Temperature Pulse Rate 95 107 H Respiratory Rate 14 18 Blood Pressure 111/68 116/74 Pulse Oximetry 99 98 98 Oxygen Delivery Room Air Fraction of Inspired Oxygen 12/21/24 17:11 12/21/24 17:50 12/21/24 18:16 Temperature 36.8 C Pulse Rate 104 H 104 H 102 H Respiratory Rate 15 18 18 Blood Pressure 107/63 108/68 165/94 H Pulse Oximetry 100 100 100 Oxygen Delivery Fraction of Inspired Oxygen 12/21/24 18:29 12/21/24 18:29 12/21/24 20:00 Temperature 36.9 C Pulse Rate 104 H 101 H 99 Respiratory Rate 18 18 Blood Pressure 110/74 Pulse Oximetry 100 100 Oxygen Delivery Room Air Fraction of Inspired Oxygen 12/21/24 20:00 12/21/24 20:00 12/21/24 20:29 Temperature Pulse Rate 96 Respiratory Rate Blood Pressure Pulse Oximetry 100 100 Oxygen Delivery Room Air Room Air Fraction of Inspired Oxygen 21 12/21/24 22:00 12/21/24 22:00 12/22/24 00:00 Temperature 36.9 C 37.1 C Pulse Rate 85 93 80 Respiratory Rate 21 H 18 Blood Pressure 131/78 119/74 Pulse Oximetry 97 99 Oxygen Delivery Fraction of Inspired Oxygen 12/22/24 00:00 12/22/24 00:00 12/22/24 02:00 Temperature 37.0 C Pulse Rate 93 86 Respiratory Rate 18 Blood Pressure 122/76 Pulse Oximetry 99 100 Oxygen Delivery Room Air Fraction of Inspired Oxygen 12/22/24 02:00 12/22/24 04:00 12/22/24 04:00 Temperature Pulse Rate 77 90 Respiratory Rate 18 Blood Pressure 123/74 Pulse Oximetry 98 98 Oxygen Delivery Room Air Fraction of Inspired Oxygen 12/22/24 04:00 12/22/24 06:00 12/22/24 06:00 Temperature Pulse Rate 83 74 74 Respiratory Rate 15 Blood Pressure 117/73 Pulse Oximetry 99 Oxygen Delivery Fraction of Inspired Oxygen Exam 2 Narrative: General: Pt is alert awake and in NAD Lungs/Chest: Trachea central Clear BS B/L, No crackles or wheezing. Cardiac: RRR. Normal S1 S2. No murmurs Circulation: Pedal pulses are intact and symmetrical. Abdomen: Normal bowel sounds.. Soft. NT. ND. Extremities: No clubbing, cyanosis or edema. Warm : Matthews in place Neurologic: Follows commands. Moves all 4 extremities PERRL Skin: No Rash Results Labs 12/22/24 06:24 12/22/24 06:24 Labs: Impressions Chest X-Ray 12/21/24 12:32 IMPRESSION: 1. No acute cardiopulmonary disease. Short CBC 12/21/24 12/22/24 Range/Units 12:05 06:24 WBC 7.9 6.7 (4.5-10.0) K/mm3 Hgb 14.6 13.1 (12.0-15.0) g/dL Hct 42.3 37.8 (37.0-47.0) % Plt Count 370 275 (150-375) k/mm3 BMP 12/21/24 12/21/24 12/21/24 12:05 15:35 19:57 Sodium 137 138 136 L Potassium 3.8 3.2 L 4.0 Chloride 105 111 H 110 H Carbon Dioxide 11 L 14 L 14 L BUN 7 5 L 3 L Creatinine 0.49 L 0.33 L 0.36 L Glucose 282 H 202 H 208 H Calcium 9.1 6.8 L 8.0 L 12/22/24 12/22/24 00:58 06:24 Sodium 133 L 135 L Potassium 3.2 L 3.7 Chloride 106 107 Carbon Dioxide 14 L 14 L BUN < 2 L < 2 L Creatinine 0.39 L 0.41 L Glucose 189 H 186 H Calcium 7.6 L 7.5 L Cardiac Enzymes 12/21/24 12/21/24 Range/Units 12:05 14:50 Troponin I < 0.012 < 0.012 (0.000-0.034) ng/mL Liver Function 12/21/24 12/22/24 Range/Units 12:05 06:24 Total Bilirubin 0.5 0.5 (0.2-1.3) mg/dL AST 13 L 12 L (14-36) U/L ALT 10 8 (6-35) U/L Alkaline Phosphatase 100 71 (38-126) U/L Albumin 4.6 3.0 L (3.5-5.1) g/dL Urine 12/21/24 12/22/24 Range/Units 12:29 01:24 Urine Color Yellow Yellow (Yellow) Urine Appearance Cloudy H Clear (Clear) Urine pH 6.0 5.5 (5.0-9.0) Ur Specific [place] 1.037 H 1.016 (1.001-1.035) Urine Protein 1+ H Negative (Negative) mg/dL Urine Glucose (UA) 3+ H 3+ H (Negative) mg/dL Hospitalist MIPS Advance Care Plan I have confirmed that the patient's Advanced Care Plan is present, code status is documented, or surrogate decision maker is listed in patient medical record.: Yes Medication Reconciliation I have utilized all available resources to obtain, update and review the patients current medications (includes all prescriptions, OTC, herbals, cannabis, and nutritional supplements).: Yes
[2024-12-22] MEDS: INSULIN HUMAN REGULAR (*BKC) 100 UNITS in SODIUM CHLORIDE 0.9% IV 99 ML 5.5 UNITS IV CONT (09:11)
[2024-12-22] MEDS: KCL 20 MEQ/D5/0.45% SOD CHL 1,000 ML 150 ML IV CONT (09:19)
[2024-12-22] MEDS: MAGNESIUM SULF 2 GM/WATER 50ML 2 GM/50 ML BAG IVPB (09:22)
[2024-12-22] MEDS: ENOXAPARIN 40 MG/0.4 ML SYRINGE SUB-Q (09:26)
[2024-12-22 09:31] LABS: Glucose Point of Care 197 mg/dl (65-105)
[2024-12-22 10:05] LABS: Glucose Point of Care 266 mg/dl (65-105)
--- NOTE | 2024-12-22 10:54 | P.PNIM_ITS ---
Progress Note: A&P Assessment and Plan (1) Type I diabetes mellitus: Code(s): E10.9 - Type 1 diabetes mellitus without complications Status: Acute (2) DKA (diabetic ketoacidosis): Code(s): E11.10 - Type 2 diabetes mellitus with ketoacidosis without coma Status: Acute (3) Diabetic ketoacidosis: Code(s): E11.10 - Type 2 diabetes mellitus with ketoacidosis without coma Status: Acute (4) Abnormal thyroid blood test: Code(s): R79.89 - Other specified abnormal findings of blood chemistry Status: Acute (5) Hypokalemia: Code(s): E87.6 - Hypokalemia Status: Acute (6) Urinary tract infection: Code(s): N39.0 - Urinary tract infection, site not specified Status: Acute (7) Pyelonephritis: Code(s): N12 - Tubulo-interstitial nephritis, not specified as acute or chronic Status: Acute Plan (1) Urinary tract infection: Code(s): N39.0 - Urinary tract infection, site not specified Status: Acute Assessment and Plan: UA abnormal insisted of UTI. Patient on Levaquin that was started in the ER. pending urine culture (2) Hypokalemia: Code(s): E87.6 - Hypokalemia Status: Acute Assessment and Plan: Patient is currently receiving replacement (3) Diabetic ketoacidosis: Code(s): E11.10 - Type 2 diabetes mellitus with ketoacidosis without coma Status: Acute Assessment and Plan: Patient presented with labs concerning of DKA. initial IV insulin bolus and IV fluid bolus patient 9 gap had closed. acidosis persists c/w insulin infusion with IV fluids with dextrose Replace electrolytes as needed Consult dietitian and certified adaptive physical educator Patient was provided service correspondent's office phone number, patient has sche duled appointment with service correspondent for follow-up after discharge (4) Abnormal thyroid blood test: Code(s): R79.89 - Other specified abnormal findings of blood chemistry Status: Acute Assessment and Plan: TSH was low, free T4 was normal and free T3 level was low on check in the ER Patient states her physician regularly monitors her thyroid function and they have been normal as an outpatient. rechecked in 4 weeks as an outpatient to a certain whether thyroid function normalizes considering this may be due to current illness Plan DVT prophylaxis -Lovenox Nutrition -clear liquid diet Code Status - Full Code Subjective Date/time seen: 12/22/24 10:54 Interval history: I saw examined the patient today, patient feels comfortable, denies nausea vo miting abdomen pain. Exam Narrative: GENERAL: Pleasant, in no acute distress. Well-nourished. - EYES: EOMI. Anicteric. - HENT: Moist mucous membranes. - LUNGS: Clear to auscultation bilateral ly, no wheezing, rhonchi, or rales. - CARDIOVASCULAR: Regular rate and rhyth m. No murmur. No JVD. - ABDOMEN: Soft, non-tender and non-dist ended. No palpable masses. - EXTREMITIES: No edema. Peripheral puls es 2+. Non-tender. - NEUROLOGIC: No focal neurological defi cits. CN II-XII grossly intact. - PSYCHIATRIC: Awake, Alert and oriented x 3. Appropriate mood and affect. - SKIN: No rashes or lesions. Warm. - LYMPH: No cervical lymphadenopathy. Objective Data Vital Signs Vital Signs: Vital Signs - 24 hr 12/21/24 11:11 12/21/24 11:12 12/21/24 11:18 Temperature 98 F Pulse Rate 115 H 110 H Respiratory Rate 18 23 H Blood Pressure 128/72 128/72 Pulse Oximetry 100 100 100 Oxygen Delivery Room Air Room Air Fraction of Inspired Oxygen 12/21/24 11:30 12/21/24 13:09 12/21/24 13:30 Temperature Pulse Rate 101 H 102 H 97 Respiratory Rate 16 15 17 Blood Pressure 113/77 120/71 126/75 Pulse Oximetry 100 100 100 Oxygen Delivery Fraction of Inspired Oxygen 12/21/24 14:00 12/21/24 14:16 12/21/24 14:30 Temperature Pulse Rate 95 97 95 Respiratory Rate 16 15 14 Blood Pressure 120/75 120/75 111/68 Pulse Oximetry 100 100 99 Oxygen Delivery Fraction of Inspired Oxygen 12/21/24 15:46 12/21/24 15:46 12/21/24 17:11 Temperature Pulse Rate 107 H 104 H Respiratory Rate 18 15 Blood Pressure 116/74 107/63 Pulse Oximetry 98 98 100 Oxygen Delivery Room Air Fraction of Inspired Oxygen 12/21/24 17:50 12/21/24 18:16 12/21/24 18:29 Temperature 98.3 F Pulse Rate 104 H 102 H 104 H Respiratory Rate 18 18 18 Blood Pressure 108/68 165/94 H Pulse Oximetry 100 100 100 Oxygen Delivery Room Air Fraction of Inspired Oxygen 12/21/24 18:29 12/21/24 20:00 12/21/24 20:00 Temperature 98.4 F Pulse Rate 101 H 99 Respiratory Rate 18 Blood Pressure 110/74 Pulse Oximetry 100 100 Oxygen Delivery Room Air Fraction of Inspired Oxygen 12/21/24 20:00 12/21/24 20:29 12/21/24 22:00 Temperature 98.4 F Pulse Rate 96 85 Respiratory Rate 21 H Blood Pressure 131/78 Pulse Oximetry 100 97 Oxygen Delivery Room Air Fraction of Inspired Oxygen 21 12/21/24 22:00 12/22/24 00:00 12/22/24 00:00 Temperature 98.8 F Pulse Rate 93 80 Respiratory Rate 18 Blood Pressure 119/74 Pulse Oximetry 99 99 Oxygen Delivery Room Air Fraction of Inspired Oxygen 12/22/24 00:00 12/22/24 02:00 12/22/24 02:00 Temperature 98.6 F Pulse Rate 93 86 77 Respiratory Rate 18 Blood Pressure 122/76 Pulse Oximetry 100 Oxygen Delivery Fraction of Inspired Oxygen 12/22/24 04:00 12/22/24 04:00 12/22/24 04:00 Temperature Pulse Rate 90 83 Respiratory Rate 18 Blood Pressure 123/74 Pulse Oximetry 98 98 Oxygen Delivery Room Air Fraction of Inspired Oxygen 12/22/24 06:00 12/22/24 06:00 12/22/24 08:00 Temperature Pulse Rate 74 74 93 Respiratory Rate 15 Blood Pressure 117/73 Pulse Oximetry 99 Oxygen Delivery Fraction of Inspired Oxygen 12/22/24 08:00 12/22/24 10:00 12/22/24 10:00 Temperature 98.0 F 98.1 F Pulse Rate 93 110 H 110 H Respiratory Rate 16 19 Blood Pressure 115/76 121/84 Pulse Oximetry 100 100 Oxygen Delivery Fraction of Inspired Oxygen Intake/Output Intake/Output: Intake & Output 12/19/24 12/20/24 12/21/24 12/22/24 23:59 23:59 23:59 23:59 Intake Total 3250 305 Output Total 700 Balance 3250 -395 Meds/Results Medications: Active Medications Generic Name Dose Route Start Last Admin Trade Name Freq PRN Reason Stop Dose Admin Acetaminophen 650 mg 12/21/24 21:45 12/22/24 06:49 Acetaminophen 325 Mg Tablet PO 650 mg Q6H PRN Administration Mild Pain (1-3) or Fever Dextrose 12.5 gm 12/22/24 08:20 Dextrose 50% 25 Gm/50 Ml Syringe IV PUSH PRN PRN Hypoglycemia Protocol Enoxaparin Sodium 40 mg 12/22/24 09:00 12/22/24 09:26 Enoxaparin 40 Mg/0.4 Ml Syringe SUB-Q 40 mg DAILY DESTINY Administration Glucagon 1 mg 12/22/24 08:20 Glucagon For Inj 1 Mg Vial IM PRN PRN Hypoglycemia Protocol Glucose 15 gm 12/22/24 08:20 Glucose Oral Gel 15 Gm Of Glucse In 37.5 Gm Tube PO PRN PRN Hypoglycemia Protocol Levofloxacin/Dextrose 750 mg in 150 mls @ 100 mls/hr 12/22/24 14:00 Levaquin 750 Mg/D5w 150 Ml IVPB DAILY DESTINY Potassium Chloride/Dextrose/Sod Cl 1,000 mls @ 150 mls/hr 12/22/24 08:20 12/22/24 09:19 Kcl 20 Meq/D5/0.45% Sod Chl IV CONT 150 mls/hr .Q6H40M DESTINY Administration Dextrose/Sodium Chloride 1,000 mls @ 150 mls/hr 12/22/24 08:20 Dextrose 5% Sodium Chloride 0.45% IV CONT .Q6H40M DESTINY Insulin Human Regular 100 100 mls @ 6.5 mls/hr 12/22/24 08:20 12/22/24 10:05 units/ Sodium Chloride IV CONT 6.5 units/hr .[id number] DESTINY 6.5 mls/hr Titration Protocol 6.5 UNITS/HR Dextrose 1,000 mls @ 100 mls/hr 12/22/24 08:20 Dextrose 5% 1,000 Ml IVPB PRN PRN Hypoglycemia Protocol Polyethylene Glycol 17 gm 12/21/24 21:45 Polyethylene Glycol 3350 17 Gm Powd.Pack PO QAM PRN Constipation Radiology Results: ITS Impressions Chest X-Ray 12/21/24 12:32 IMPRESSION: 1. No acute cardiopulmonary disease. Labs Labs: Laboratory Results - last 24 hr 12/21/24 12/21/24 12/21/24 12:05 12:12 12:21 WBC 7.9 RBC 4.60 Hgb 14.6 Hct 42.3 MCV 92.0 MCH 31.7 MCHC 34.5 RDW 13.2 Plt Count 370 MPV 9.5 Immature Gran % (Auto) 0.1 Neut % (Auto) 63.5 Lymph % (Auto) 31.5 [place] % (Auto) 4.4 Eos % (Auto) 0.0 Baso % (Auto) 0.5 Lymph # (Auto) 2.48 [place] # (Auto) 0.4 Eos # (Auto) 0.0 Baso # (Auto) 0.0 Abs Immat Gran (auto) 0.01 Absolute Neuts (auto) 5.0 Absolute Nucleated RBC 0.000 Nucleated RBC % 0.0 PT INR APTT D-Dimer VBG pH 7.233 L* VBG pCO2 32.9 L VBG pO2 < 27.0 L VBG HCO3 13.6 L O2 Delivery Device Room air O2 Liters/Min Not Reportable FiO2 21 Sodium 137 Potassium 3.8 Chloride 105 Carbon Dioxide 11 L Anion Gap 21 H BUN 7 Creatinine 0.49 L Estim Creat Clear Calc 123 Estimated GFR > 60 Glucose 282 H POC Capillary Glucose 254 H Lactic Acid 0.8 Calcium 9.1 Phosphorus 1.8 L Magnesium 2.0 Total Bilirubin 0.5 AST 13 L ALT 10 Alkaline Phosphatase 100 Troponin I < 0.012 NT-Pro-B Natriuret Pep < 20 Total Protein 8.0 Albumin 4.6 Lipase 57 TSH (Reflex) 0.436 L Free T4 1.10 Total T3 0.81 L Urine Color Urine Appearance Urine pH Ur Specific [place] Urine Protein Urine Glucose (UA) Urine Ketones Ur Blood (Man) Urine Nitrate Urine Bilirubin Urine Urobilinogen Ur Leukocyte Esterase Add Ur Microanalysis Leukocyte Esterase Rfl Urine RBC Urine WBC Ur Squamous Epith Cells Urine Bacteria Urine Casts POC Urine HCG, Qual Nasal MRSA (PCR) Urine Opiates Screen Urine Methadone Screen Ur Barbiturates Screen Ur Phencyclidine Scrn Ur Amphetamine Screen U Benzodiazepines Scrn Urine Cocaine Screen U Cannabinoids Screen Influenza A (RT-PCR) Negative Influenza B (RT-PCR) Negative RSV (RT-PCR) Negative SARS-CoV-2 RNA (RT-PCR) Negative 12/21/24 12/21/24 12/21/24 12:29 12:59 13:09 WBC RBC Hgb Hct MCV MCH MCHC RDW Plt Count MPV Immature Gran % (Auto) Neut % (Auto) Lymph % (Auto) [place] % (Auto) Eos % (Auto) Baso % (Auto) Lymph # (Auto) [place] # (Auto) Eos # (Auto) Baso # (Auto) Abs Immat Gran (auto) Absolute Neuts (auto) Absolute Nucleated RBC Nucleated RBC % PT 14.5 INR 1.1 APTT 21.9 L D-Dimer < 0.27 VBG pH VBG pCO2 VBG pO2 VBG HCO3 O2 Delivery Device O2 Liters/Min FiO2 Sodium Potassium Chloride Carbon Dioxide Anion Gap BUN Creatinine Estim Creat Clear Calc Estimated GFR Glucose POC Capillary Glucose Lactic Acid Calcium Phosphorus Magnesium Total Bilirubin AST ALT Alkaline Phosphatase Troponin I NT-Pro-B Natriuret Pep Total Protein Albumin Lipase TSH (Reflex) Free T4 Total T3 Urine Color Yellow Urine Appearance Cloudy H Urine pH 6.0 Ur Specific [place] 1.037 H Urine Protein 1+ H Urine Glucose (UA) 3+ H Urine Ketones 4+ H Ur Blood (Man) Negative Urine Nitrate Negative Urine Bilirubin Negative Urine Urobilinogen 0.2 Ur Leukocyte Esterase Add Ur Microanalysis Reviewed Leukocyte Esterase Rfl Trace H Urine RBC 0-2 Urine WBC 51-100 H Ur Squamous Epith Cells Many H Urine Bacteria 2+ H Urine Casts >20 POC Urine HCG, Qual Negative Nasal MRSA (PCR) Urine Opiates Screen Negative Urine Methadone Screen Negative Ur Barbiturates Screen Negative Ur Phencyclidine Scrn Negative Ur Amphetamine Screen Negative U Benzodiazepines Scrn Negative Urine Cocaine Screen Negative U Cannabinoids Screen Negative Influenza A (RT-PCR) Influenza B (RT-PCR) RSV (RT-PCR) SARS-CoV-2 RNA (RT-PCR) 12/21/24 12/21/24 12/21/24 14:50 15:35 16:43 WBC RBC Hgb Hct MCV MCH MCHC RDW Plt Count MPV Immature Gran % (Auto) Neut % (Auto) Lymph % (Auto) [place] % (Auto) Eos % (Auto) Baso % (Auto) Lymph # (Auto) [place] # (Auto) Eos # (Auto) Baso # (Auto) Abs Immat Gran (auto) Absolute Neuts (auto) Absolute Nucleated RBC Nucleated RBC % PT INR APTT D-Dimer VBG pH VBG pCO2 VBG pO2 VBG HCO3 O2 Delivery Device O2 Liters/Min FiO2 Sodium 138 Potassium 3.2 L Chloride 111 H Carbon Dioxide 14 L Anion Gap 13 H BUN 5 L Creatinine 0.33 L Estim Creat Clear Calc 173 Estimated GFR > 60 Glucose 202 H POC Capillary Glucose 282 H Lactic Acid Calcium 6.8 L Phosphorus Magnesium Total Bilirubin AST ALT Alkaline Phosphatase Troponin I < 0.012 NT-Pro-B Natriuret Pep Total Protein Albumin Lipase TSH (Reflex) Free T4 Total T3 Urine Color Urine Appearance Urine pH Ur Specific [place] Urine Protein Urine Glucose (UA) Urine Ketones Ur Blood (Man) Urine Nitrate Urine Bilirubin Urine Urobilinogen Ur Leukocyte Esterase Add Ur Microanalysis Leukocyte Esterase Rfl Urine RBC Urine WBC Ur Squamous Epith Cells Urine Bacteria Urine Casts POC Urine HCG, Qual Nasal MRSA (PCR) Urine Opiates Screen Urine Methadone Screen Ur Barbiturates Screen Ur Phencyclidine Scrn Ur Amphetamine Screen U Benzodiazepines Scrn Urine Cocaine Screen U Cannabinoids Screen Influenza A (RT-PCR) Influenza B (RT-PCR) RSV (RT-PCR) SARS-CoV-2 RNA (RT-PCR) 12/21/24 12/21/24 12/21/24 18:15 18:43 19:04 WBC RBC Hgb Hct MCV MCH MCHC RDW Plt Count MPV Immature Gran % (Auto) Neut % (Auto) Lymph % (Auto) [place] % (Auto) Eos % (Auto) Baso % (Auto) Lymph # (Auto) [place] # (Auto) Eos # (Auto) Baso # (Auto) Abs Immat Gran (auto) Absolute Neuts (auto) Absolute Nucleated RBC Nucleated RBC % PT INR APTT D-Dimer VBG pH VBG pCO2 VBG pO2 VBG HCO3 O2 Delivery Device O2 Liters/Min FiO2 Sodium Potassium Chloride Carbon Dioxide Anion Gap BUN Creatinine Estim Creat Clear Calc Estimated GFR Glucose POC Capillary Glucose 238 H 200 H Lactic Acid Calcium Phosphorus Magnesium Total Bilirubin AST ALT Alkaline Phosphatase Troponin I NT-Pro-B Natriuret Pep Total Protein Albumin Lipase TSH (Reflex) Free T4 Total T3 Urine Color Urine Appearance Urine pH Ur Specific [place] Urine Protein Urine Glucose (UA) Urine Ketones Ur Blood (Man) Urine Nitrate Urine Bilirubin Urine Urobilinogen Ur Leukocyte Esterase Add Ur Microanalysis Leukocyte Esterase Rfl Urine RBC Urine WBC Ur Squamous Epith Cells Urine Bacteria Urine Casts POC Urine HCG, Qual Nasal MRSA (PCR) Not detected Urine Opiates Screen Urine Methadone Screen Ur Barbiturates Screen Ur Phencyclidine Scrn Ur Amphetamine Screen U Benzodiazepines Scrn Urine Cocaine Screen U Cannabinoids Screen Influenza A (RT-PCR) Influenza B (RT-PCR) RSV (RT-PCR) SARS-CoV-2 RNA (RT-PCR) 12/21/24 12/21/24 12/21/24 19:57 20:02 21:00 WBC RBC Hgb Hct MCV MCH MCHC RDW Plt Count MPV Immature Gran % (Auto) Neut % (Auto) Lymph % (Auto) [place] % (Auto) Eos % (Auto) Baso % (Auto) Lymph # (Auto) [place] # (Auto) Eos # (Auto) Baso # (Auto) Abs Immat Gran (auto) Absolute Neuts (auto) Absolute Nucleated RBC Nucleated RBC % PT INR APTT D-Dimer VBG pH VBG pCO2 VBG pO2 VBG HCO3 O2 Delivery Device O2 Liters/Min FiO2 Sodium 136 L Potassium 4.0 Chloride 110 H Carbon Dioxide 14 L Anion Gap 12 BUN 3 L Creatinine 0.36 L Estim Creat Clear Calc 143 Estimated GFR > 60 Glucose 208 H POC Capillary Glucose 210 H 198 H Lactic Acid Calcium 8.0 L Phosphorus 2.0 L Magnesium 1.6 Total Bilirubin AST ALT Alkaline Phosphatase Troponin I NT-Pro-B Natriuret Pep Total Protein Albumin Lipase TSH (Reflex) Free T4 Total T3 Urine Color Urine Appearance Urine pH Ur Specific [place] Urine Protein Urine Glucose (UA) Urine Ketones Ur Blood (Man) Urine Nitrate Urine Bilirubin Urine Urobilinogen Ur Leukocyte Esterase Add Ur Microanalysis Leukocyte Esterase Rfl Urine RBC Urine WBC Ur Squamous Epith Cells Urine Bacteria Urine Casts POC Urine HCG, Qual Nasal MRSA (PCR) Urine Opiates Screen Urine Methadone Screen Ur Barbiturates Screen Ur Phencyclidine Scrn Ur Amphetamine Screen U Benzodiazepines Scrn Urine Cocaine Screen U Cannabinoids Screen Influenza A (RT-PCR) Influenza B (RT-PCR) RSV (RT-PCR) SARS-CoV-2 RNA (RT-PCR) 12/21/24 12/22/24 12/22/24 21:51 00:58 01:24 WBC RBC Hgb Hct MCV MCH MCHC RDW Plt Count MPV Immature Gran % (Auto) Neut % (Auto) Lymph % (Auto) [place] % (Auto) Eos % (Auto) Baso % (Auto) Lymph # (Auto) [place] # (Auto) Eos # (Auto) Baso # (Auto) Abs Immat Gran (auto) Absolute Neuts (auto) Absolute Nucleated RBC Nucleated RBC % PT INR APTT D-Dimer VBG pH VBG pCO2 VBG pO2 VBG HCO3 O2 Delivery Device O2 Liters/Min FiO2 Sodium 133 L Potassium 3.2 L Chloride 106 Carbon Dioxide 14 L Anion Gap 13 H BUN < 2 L Creatinine 0.39 L Estim Creat Clear Calc 133 Estimated GFR > 60 Glucose 189 H POC Capillary Glucose 180 H Lactic Acid Calcium 7.6 L Phosphorus 2.1 L Magnesium Total Bilirubin AST ALT Alkaline Phosphatase Troponin I NT-Pro-B Natriuret Pep Total Protein Albumin Lipase TSH (Reflex) Free T4 Total T3 Urine Color Yellow Urine Appearance Clear Urine pH 5.5 Ur Specific [place] 1.016 Urine Protein Negative Urine Glucose (UA) 3+ H Urine Ketones 4+ H Ur Blood (Man) Negative Urine Nitrate Negative Urine Bilirubin Negative Urine Urobilinogen 0.2 Ur Leukocyte Esterase Trace H Add Ur Microanalysis Leukocyte Esterase Rfl Urine RBC 0-2 Urine WBC 11-20 H Ur Squamous Epith Cells Occasional Urine Bacteria None seen Urine Casts 0-2 POC Urine HCG, Qual Nasal MRSA (PCR) Urine Opiates Screen Urine Methadone Screen Ur Barbiturates Screen Ur Phencyclidine Scrn Ur Amphetamine Screen U Benzodiazepines Scrn Urine Cocaine Screen U Cannabinoids Screen Influenza A (RT-PCR) Influenza B (RT-PCR) RSV (RT-PCR) SARS-CoV-2 RNA (RT-PCR) 12/22/24 12/22/24 12/22/24 01:53 06:24 06:55 WBC 6.7 RBC 4.12 L Hgb 13.1 Hct 37.8 MCV 91.7 MCH 31.8 MCHC 34.7 RDW 13.3 Plt Count 275 MPV 9.4 Immature Gran % (Auto) Neut % (Auto) Lymph % (Auto) [place] % (Auto) Eos % (Auto) Baso % (Auto) Lymph # (Auto) [place] # (Auto) Eos # (Auto) Baso # (Auto) Abs Immat Gran (auto) Absolute Neuts (auto) Absolute Nucleated RBC Nucleated RBC % PT INR APTT D-Dimer VBG pH VBG pCO2 VBG pO2 VBG HCO3 O2 Delivery Device O2 Liters/Min FiO2 Sodium 135 L Potassium 3.7 Chloride 107 Carbon Dioxide 14 L Anion Gap 14 H BUN < 2 L Creatinine 0.41 L Estim Creat Clear Calc 128 Estimated GFR > 60 Glucose 186 H POC Capillary Glucose 203 H 181 H Lactic Acid Calcium 7.5 L Phosphorus 3.9 Magnesium 1.5 L Total Bilirubin 0.5 AST 12 L ALT 8 Alkaline Phosphatase 71 Troponin I NT-Pro-B Natriuret Pep Total Protein 6.0 L Albumin 3.0 L Lipase TSH (Reflex) Free T4 Total T3 Urine Color Urine Appearance Urine pH Ur Specific [place] Urine Protein Urine Glucose (UA) Urine Ketones Ur Blood (Man) Urine Nitrate Urine Bilirubin Urine Urobilinogen Ur Leukocyte Esterase Add Ur Microanalysis Leukocyte Esterase Rfl Urine RBC Urine WBC Ur Squamous Epith Cells Urine Bacteria Urine Casts POC Urine HCG, Qual Nasal MRSA (PCR) Urine Opiates Screen Urine Methadone Screen Ur Barbiturates Screen Ur Phencyclidine Scrn Ur Amphetamine Screen U Benzodiazepines Scrn Urine Cocaine Screen U Cannabinoids Screen Influenza A (RT-PCR) Influenza B (RT-PCR) RSV (RT-PCR) SARS-CoV-2 RNA (RT-PCR) 12/22/24 12/22/24 09:08 10:03 WBC RBC Hgb Hct MCV MCH MCHC RDW Plt Count MPV Immature Gran % (Auto) Neut % (Auto) Lymph % (Auto) [place] % (Auto) Eos % (Auto) Baso % (Auto) Lymph # (Auto) [place] # (Auto) Eos # (Auto) Baso # (Auto) Abs Immat Gran (auto) Absolute Neuts (auto) Absolute Nucleated RBC Nucleated RBC % PT INR APTT D-Dimer VBG pH VBG pCO2 VBG pO2 VBG HCO3 O2 Delivery Device O2 Liters/Min FiO2 Sodium Potassium Chloride Carbon Dioxide Anion Gap BUN Creatinine Estim Creat Clear Calc Estimated GFR Glucose POC Capillary Glucose 197 H 266 H Lactic Acid Calcium Phosphorus Magnesium Total Bilirubin AST ALT Alkaline Phosphatase Troponin I NT-Pro-B Natriuret Pep Total Protein Albumin Lipase TSH (Reflex) Free T4 Total T3 Urine Color Urine Appearance Urine pH Ur Specific [place] Urine Protein Urine Glucose (UA) Urine Ketones Ur Blood (Man) Urine Nitrate Urine Bilirubin Urine Urobilinogen Ur Leukocyte Esterase Add Ur Microanalysis Leukocyte Esterase Rfl Urine RBC Urine WBC Ur Squamous Epith Cells Urine Bacteria Urine Casts POC Urine HCG, Qual Nasal MRSA (PCR) Urine Opiates Screen Urine Methadone Screen Ur Barbiturates Screen Ur Phencyclidine Scrn Ur Amphetamine Screen U Benzodiazepines Scrn Urine Cocaine Screen U Cannabinoids Screen Influenza A (RT-PCR) Influenza B (RT-PCR) RSV (RT-PCR) SARS-CoV-2 RNA (RT-PCR)
[2024-12-22 11:04] LABS: Glucose Point of Care 332 mg/dl (65-105)
[2024-12-22] MEDS: levoFLOXacin 750 MG TABLET PO (12:08)
[2024-12-22 12:09] LABS: Glucose Point of Care 292 mg/dl (65-105)
[2024-12-22 13:07] LABS: Anion Gap 9 mmol/L (4-12); Calcium 7.7 mg/dL (8.4-10.2); Carbon Dioxide 20 mmol/L (22-30); Chloride 104 mmol/L (98-107); Estimated CRCL calculation 143 ml/min; Estimated Glomerular Filt Rate > 60; Glucose 274 mg/dL (65-110); Potassium 3.3 mmol/L (3.4-5.0); Sodium 133 mmol/L (137-145)
[2024-12-22 13:14] LABS: Glucose Point of Care 244 mg/dl (65-105)
[2024-12-22 13:24] LABS: Blood Urea Nitrogen < 2 mg/dL (7-17)
[2024-12-22] MEDS: KCL 20 MEQ/0.45% NS 1,000 ML 75 ML IV CONT (14:04)
[2024-12-22] MEDS: POTASSIUM CHLORIDE 20 MEQ PACKET (FOR LIQUID) 40 MEQ PO ×2 (14:05→21:18)
[2024-12-22 14:12] LABS: Glucose Point of Care 204 mg/dl (65-105)
[2024-12-22 15:01] LABS: Glucose Point of Care 94 mg/dl (65-105)
[2024-12-22 16:03] LABS: Glucose Point of Care 76 mg/dl (65-105)
[2024-12-22 16:48] LABS: Anion Gap 8 mmol/L (4-12); Calcium 7.7 mg/dL (8.4-10.2); Carbon Dioxide 22 mmol/L (22-30); Chloride 105 mmol/L (98-107); Estimated CRCL calculation 143 ml/min; Estimated Glomerular Filt Rate > 60; Glucose 94 mg/dL (65-110); Potassium 3.6 mmol/L (3.4-5.0); Sodium 135 mmol/L (137-145)
[2024-12-22 17:20] LABS: Glucose Point of Care 128 mg/dl (65-105)
[2024-12-22 18:35] LABS: Blood Urea Nitrogen < 2 mg/dL (7-17)
[2024-12-22 21:22] LABS: Glucose Point of Care 196 mg/dl (65-105)
--- NOTE | 2024-12-22 23:48 | PC.NURSE ---
This patient, Shaye Sierra, was transferred to [[id number] ] on 12/22/24 at 2348. Personal belongings sent with patient. Report given to [Oscar FRY ]. Appropriate documentation sent with patient.
[2024-12-23] VITALS: BP 100/60; PULSE 86; RESP 13; TEMP 36.3; O2SAT 99
[2024-12-23 06:03] LABS: Hemoglobin 12.5 g/dL (12.0-15.0); Mean Corpuscular HGB Conc 34.7 g/dl (32-36); Mean Corpuscular Hemoglobin 31.6 pg (26-34); Mean Corpuscular Volume 91.1 fl (80-100); Mean Platelet Volume 9.6 fl (7.4-10.4); Platelet Count Result 279 k/mm3 (150-375); Red Blood Count 3.95 M/mm3 (4.2-5.4); Red Cell Distribution Width 13.8 % (11.5-14.5); White Blood Count 7.2 K/mm3 (4.5-10.0)
[2024-12-23 06:16] LABS: Alanine Aminotransferase 9 U/L (6-35); Albumin Level 2.9 g/dL (3.5-5.1); Alkaline Phosphatase 64 U/L (38-126); Anion Gap 5 mmol/L (4-12); Aspartate Amino Transferase 15 U/L (14-36); Bilirubin,Total 0.2 mg/dL (0.2-1.3); Calcium 8.1 mg/dL (8.4-10.2); Carbon Dioxide 29 mmol/L (22-30); Chloride 106 mmol/L (98-107); Estimated CRCL calculation 133 ml/min; Estimated Glomerular Filt Rate > 60; Glucose 85 mg/dL (65-110); Potassium 3.1 mmol/L (3.4-5.0); Sodium 140 mmol/L (137-145)
[2024-12-23 06:20] LABS: Blood Urea Nitrogen < 2 mg/dL (7-17)
[2024-12-23 07:58] LABS: Glucose Point of Care 82 mg/dl (65-105)
[2024-12-23] MEDS: levoFLOXacin 750 MG TABLET PO (09:09)
[2024-12-23] MEDS: ENOXAPARIN 40 MG/0.4 ML SYRINGE SUB-Q (09:09)
[2024-12-23] MEDS: ACETAMINOPHEN 325 MG TABLET 650 MG PO (09:13)
--- NOTE | 2024-12-23 09:45 | PM.IMPN ---
Progress Note: A&P Assessment and Plan (1) Type I diabetes mellitus: Code(s): E10.9 - Type 1 diabetes mellitus without complications Status: Acute (2) DKA (diabetic ketoacidosis): Code(s): E11.10 - Type 2 diabetes mellitus with ketoacidosis without coma Status: Acute (3) Abnormal thyroid blood test: Code(s): R79.89 - Other specified abnormal findings of blood chemistry Status: Acute (4) Hypokalemia: Code(s): E87.6 - Hypokalemia Status: Acute (5) Urinary tract infection: Code(s): N39.0 - Urinary tract infection, site not specified Status: Acute (6) Pyelonephritis: Code(s): N12 - Tubulo-interstitial nephritis, not specified as acute or chronic Status: Acute Plan (1) Urinary tract infection: Code(s): N39.0 - Urinary tract infection, site not specified Status: Acute Assessment and Plan: UA abnormal insisted of UTI. Patient on Levaquin that was started in the ER. pending urine culture (2) Hypokalemia: Code(s): E87.6 - Hypokalemia Status: Acute Assessment and Plan: Patient is currently receiving replacement (3) Diabetic ketoacidosis: Code(s): E11.10 - Type 2 diabetes mellitus with ketoacidosis without coma Status: Acute Assessment and Plan: Patient presented with labs concerning of DKA. initial IV insulin bolus and IV fluid bolus patient 9 gap had closed. acidosis persists c/w insulin infusion with IV fluids with dextrose Replace electrolytes as needed Consult dietitian and early childhood special educator Patient was provided statue maker's office phone number, patient has scheduled appointment with statue maker for follow-up after discharge (4) Abnormal thyroid blood test: Code(s): R79.89 - Other specified abnormal findings of blood chemistry Status: Acute Assessment and Plan: TSH was low, free T4 was normal and free T3 level was low on check in the ER Patient states her physician regularly monitors her thyroid function and they have been normal as an outpatient. rechecked in 4 weeks as an outpatient to a certain whether thyroid function normalizes considering this may be due to current illness Plan DVT prophylaxis -Lovenox Nutrition -clear liquid diet Code Status - Full Code Subjective Date/time seen: 12/23/24 09:45 Interval history: I saw examined the patient today, patient feels comfortable, patient feels nauseous, vomiting abdomen pain. Exam Narrative: GENERAL: Pleasant, in no acute distress. Well-nourished. - EYES: EOMI. Anicteric. - HENT: Moist mucous membranes. - LUNGS: Clear to auscultation bilaterally, no wheezing, rhonchi, or rales. - CARDIOVASCULAR: Regular rate and rhythm. No murmur. No JVD. - ABDOMEN: Soft, non-tender and non-distended. No palpable masses. - EXTREMITIES: No edema. Peripheral pulses 2+. Non-tender. - NEUROLOGIC: No focal neurological deficits. CN II-XII grossly intact. - PSYCHIATRIC: Awake, Alert and oriented x 3. Appropriate mood and affect. - SKIN: No rashes or lesions. Warm. - LYMPH: No cervical lymphadenopathy. Objective Data Vital Signs Vital Signs: Vital Signs - 24 hr 12/22/24 10:00 12/22/24 10:00 12/22/24 12:00 Temperature 98.1 F Pulse Rate 110 H 110 H Respiratory Rate 19 Blood Pressure 121/84 Pulse Oximetry 100 Oxygen Delivery Room Air 12/22/24 12:00 12/22/24 12:00 12/22/24 14:00 Temperature 98.2 F Pulse Rate 94 94 89 Respiratory Rate 17 Blood Pressure 105/81 Pulse Oximetry 100 Oxygen Delivery 12/22/24 14:00 12/22/24 16:00 12/22/24 16:00 Temperature 98.0 F Pulse Rate 89 98 98 Respiratory Rate 16 15 Blood Pressure 108/82 Pulse Oximetry 99 100 Oxygen Delivery Room Air 12/22/24 16:00 12/22/24 18:00 12/22/24 18:00 Temperature 98.4 F 98.4 F Pulse Rate 109 H 115 H 115 H Respiratory Rate 17 18 Blood Pressure 123/84 Pulse Oximetry 100 100 Oxygen Delivery 12/22/24 20:00 12/23/24 00:00 12/23/24 08:00 Temperature 97.4 F L Pulse Rate 86 Respiratory Rate 13 Blood Pressure 100/60 Pulse Oximetry 99 Oxygen Delivery Room Air Room Air Intake/Output Intake/Output: Intake & Output 12/20/24 12/21/24 12/22/24 12/23/24 23:59 23:59 23:59 23:59 Intake Total 3250 2746.9 100 Output Total 3200 Balance 3250 -453.1 100 Meds/Results Medications: Active Medications Generic Name Dose Route Start Last Admin Trade Name Freq PRN Reason Stop Dose Admin Acetaminophen 650 mg 12/21/24 21:45 12/23/24 09:13 Acetaminophen 325 Mg Tablet PO 650 mg Q6H PRN Administration Mild Pain (1-3) or Fever Dextrose 12.5 gm 12/22/24 08:20 Dextrose 50% 25 Gm/50 Ml Syringe IV PUSH PRN PRN Hypoglycemia Protocol Enoxaparin Sodium 40 mg 12/22/24 09:00 12/23/24 09:09 Enoxaparin 40 Mg/0.4 Ml Syringe SUB-Q 40 mg DAILY DESTINY Administration Glucagon 1 mg 12/22/24 08:20 Glucagon For Inj 1 Mg Vial IM PRN PRN Hypoglycemia Protocol Glucose 15 gm 12/22/24 08:20 Glucose Oral Gel 15 Gm Of Glucse In 37.5 Gm Tube PO PRN PRN Hypoglycemia Protocol Dextrose 1,000 mls @ 100 mls/hr 12/22/24 08:20 Dextrose 5% 1,000 Ml IVPB PRN PRN Hypoglycemia Protocol Insulin Aspart 4 - 8 units 12/22/24 17:00 12/23/24 07:46 Insulin Aspart (*Bkc) 100 Units/Ml SUB-Q Not Given TIDWM [facility] Protocol Insulin Aspart 2 - 4 units 12/22/24 21:00 12/22/24 21:20 Insulin Aspart (*Bkc) 100 Units/Ml SUB-Q Not Given HS [facility] Protocol Levofloxacin 750 mg 12/22/24 11:15 12/23/24 09:09 Levofloxacin 750 Mg Tablet PO 750 mg DAILY DESTINY Administration Polyethylene Glycol 17 gm 12/21/24 21:45 Polyethylene Glycol 3350 17 Gm Powd.Pack PO QAM PRN Constipation Radiology Results: ITS Impressions Chest X-Ray 12/21/24 12:32 IMPRESSION: 1. No acute cardiopulmonary disease. Labs Labs: Laboratory Results - last 24 hr 12/22/24 12/22/24 12/22/24 10:03 10:59 12:06 WBC RBC Hgb Hct MCV MCH MCHC RDW Plt Count MPV Sodium Potassium Chloride Carbon Dioxide Anion Gap BUN Creatinine Estim Creat Clear Calc Estimated GFR Glucose POC Capillary Glucose 266 H 332 H 292 H Calcium Magnesium Total Bilirubin AST ALT Alkaline Phosphatase Total Protein Albumin 12/22/24 12/22/24 12/22/24 12:41 13:03 14:07 WBC RBC Hgb Hct MCV MCH MCHC RDW Plt Count MPV Sodium 133 L Potassium 3.3 L Chloride 104 Carbon Dioxide 20 L Anion Gap 9 BUN < 2 L Creatinine 0.36 L Estim Creat Clear Calc 143 Estimated GFR > 60 Glucose 274 H POC Capillary Glucose 244 H 204 H Calcium 7.7 L Magnesium Total Bilirubin AST ALT Alkaline Phosphatase Total Protein Albumin 12/22/24 12/22/24 12/22/24 14:57 16:00 16:02 WBC RBC Hgb Hct MCV MCH MCHC RDW Plt Count MPV Sodium 135 L Potassium 3.6 Chloride 105 Carbon Dioxide 22 Anion Gap 8 BUN < 2 L Creatinine 0.36 L Estim Creat Clear Calc 143 Estimated GFR > 60 Glucose 94 POC Capillary Glucose 94 76 Calcium 7.7 L Magnesium Total Bilirubin AST ALT Alkaline Phosphatase Total Protein Albumin 12/22/24 12/22/24 12/23/24 17:11 21:20 05:19 WBC 7.2 RBC 3.95 L Hgb 12.5 Hct 36.0 L MCV 91.1 MCH 31.6 MCHC 34.7 RDW 13.8 Plt Count 279 MPV 9.6 Sodium 140 Potassium 3.1 L Chloride 106 Carbon Dioxide 29 Anion Gap 5 BUN < 2 L Creatinine 0.39 L Estim Creat Clear Calc 133 Estimated GFR > 60 Glucose 85 POC Capillary Glucose 128 H 196 H Calcium 8.1 L Magnesium 2.0 Total Bilirubin 0.2 AST 15 ALT 9 Alkaline Phosphatase 64 Total Protein 6.0 L Albumin 2.9 L 12/23/24 07:40 WBC RBC Hgb Hct MCV MCH MCHC RDW Plt Count MPV Sodium Potassium Chloride Carbon Dioxide Anion Gap BUN Creatinine Estim Creat Clear Calc Estimated GFR Glucose POC Capillary Glucose 82 Calcium Magnesium Total Bilirubin AST ALT Alkaline Phosphatase Total Protein Albumin
[2024-12-23 11:20] VITALS: BMI 24.2
[2024-12-23] MEDS: METOCLOPRAMIDE HCL INJ 10 MG/2 ML VIAL IV PUSH (12:04)
[2024-12-23 12:35] LABS: Glucose Point of Care 91 mg/dl (65-105)
[2024-12-23] MEDS: POTASSIUM CHLORIDE 20 MEQ PACKET (FOR LIQUID) 40 MEQ PO ×2 (12:38→17:31)
--- NOTE | 2024-12-23 12:40 | PC.NURSE ---
Dr Mendoza asked if we could d/c sliding scale insulin due to patient having insulin pump with basal rate and bolus with meals. did not want to d/c sliding scale insulin.
[2024-12-23 16:00] VITALS: BP 101/57; PULSE 101; RESP 18; O2SAT 99
[2024-12-23 16:58] LABS: Glucose Point of Care 180 mg/dl (65-105)
[2024-12-23 20:00] VITALS: PULSE 101; RESP 18; O2SAT 99
[2024-12-23 22:45] LABS: Glucose Point of Care 199 mg/dl (65-105)
[2024-12-23 23:02] VITALS: BP 122/68; PULSE 103; RESP 18; TEMP 37.2; O2SAT 99
[2024-12-24 06:00] VITALS: BP 125/67; PULSE 101; RESP 18; TEMP 37.1; O2SAT 100
[2024-12-24 06:36] LABS: Hematocrit 34.9 % (37.0-47.0); Hemoglobin 11.7 g/dL (12.0-15.0); Mean Corpuscular HGB Conc 33.5 g/dl (32-36); Mean Corpuscular Hemoglobin 31.3 pg (26-34); Mean Corpuscular Volume 93.3 fl (80-100); Mean Platelet Volume 9.7 fl (7.4-10.4); Platelet Count Result 261 k/mm3 (150-375); Red Blood Count 3.74 M/mm3 (4.2-5.4); Red Cell Distribution Width 14.2 % (11.5-14.5)
[2024-12-24 06:52] LABS: Alanine Aminotransferase 13 U/L (6-35); Albumin Level 2.7 g/dL (3.5-5.1); Alkaline Phosphatase 56 U/L (38-126); Anion Gap 4 mmol/L (4-12); Aspartate Amino Transferase 24 U/L (14-36); Bilirubin,Total 0.2 mg/dL (0.2-1.3); Blood Urea Nitrogen 4 mg/dL (7-17); Calcium 8.4 mg/dL (8.4-10.2); Carbon Dioxide 32 mmol/L (22-30); Chloride 104 mmol/L (98-107); Estimated CRCL calculation 113 ml/min; Estimated Glomerular Filt Rate > 60; Glucose 99 mg/dL (65-110); Potassium 3.4 mmol/L (3.4-5.0); Sodium 140 mmol/L (137-145)
[2024-12-24 08:00] VITALS: PULSE 101; RESP 18; O2SAT 100
[2024-12-24 08:23] LABS: Glucose Point of Care 116 mg/dl (65-105)
[2024-12-24] MEDS: ENOXAPARIN 40 MG/0.4 ML SYRINGE SUB-Q (08:43)
[2024-12-24] MEDS: levoFLOXacin 750 MG TABLET PO (08:44)
--- NOTE | 2024-12-24 10:23 | P.PNIM_ITS ---
Progress Note: A&P Assessment and Plan (1) Type I diabetes mellitus: Code(s): E10.9 - Type 1 diabetes mellitus without complications Status: Acute (2) DKA (diabetic ketoacidosis): Code(s): E11.10 - Type 2 diabetes mellitus with ketoacidosis without coma Status: Acute (3) Abnormal thyroid blood test: Code(s): R79.89 - Other specified abnormal findings of blood chemistry Status: Acute (4) Hypokalemia: Code(s): E87.6 - Hypokalemia Status: Acute (5) Urinary tract infection: Code(s): N39.0 - Urinary tract infection, site not specified Status: Acute (6) Pyelonephritis: Code(s): N12 - Tubulo-interstitial nephritis, not specified as acute or chronic Status: Acute Plan (1) Urinary tract infection: Code(s): N39.0 - Urinary tract infection, site not specified Status: Acute Assessment and Plan: UA abnormal insisted of UTI. Patient on Levaquin that was started in the ER. urine culture: No growth Stop antibiotic (2) Hypokalemia: Code(s): E87.6 - Hypokalemia Status: Acute Assessment and Plan: Patient is currently receiving replacement Corrected (3) Diabetic ketoacidosis: Code(s): E11.10 - Type 2 diabetes mellitus with ketoacidosis without coma Status: Acute Assessment and Plan: Patient presented with labs concerning of DKA. initial IV insulin bolus and IV fluid bolus patient 9 gap had closed. acidosis persists c/w insulin infusion with IV fluids with dextrose Replace electrolytes as needed Consult dietitian and coding educator Patient was provided laboratory chemical assistant's office phone number, patient has scheduled appointment with laboratory chemical assistant for follow-up after discharge DKA resolved (4) Abnormal thyroid blood test: Code(s): R79.89 - Other specified abnormal findings of blood chemistry Status: Acute Assessment and Plan: TSH was low, free T4 was normal and free T3 level was low on check in the ER Patient states her physician regularly monitors her thyroid function and they have been normal as an outpatient. rechecked in 4 weeks as an outpatient to a certain whether thyroid function normalizes considering this may be due to current illness Plan DVT prophylaxis -Lovenox Nutrition -clear liquid diet Code Status - Full Code Subjective Date/time seen: 12/24/24 10:23 Interval history: I saw examined the patient today, patient feels comfortable, denies nausea vomiting diarrhea abdomen pain, dysuria or urinary urgency frequency. Glucose well controlled Exam Narrative: GENERAL: Pleasant, in no acute distress. Well-nourished. - EYES: EOMI. Anicteric. - HENT: Moist mucous membranes. - LUNGS: Clear to auscultation bilateral ly, no wheezing, rhonchi, or rales. - CARDIOVASCULAR: Regular rate and rhyth m. No murmur. No JVD. - ABDOMEN: Soft, non-tender and non-dist ended. No palpable masses. - EXTREMITIES: No edema. Peripheral puls es 2+. Non-tender. - NEUROLOGIC: No focal neurological defi cits. CN II-XII grossly intact. - PSYCHIATRIC: Awake, Alert and oriented x 3. Appropriate mood and affect. - SKIN: No rashes or lesions. Warm. - LYMPH: No cervical lymphadenopathy. Objective Data Vital Signs Vital Signs: Vital Signs - 24 hr 12/23/24 16:00 12/23/24 20:00 12/23/24 23:02 Temperature 98.9 F Pulse Rate 101 H 101 H 103 H Respiratory Rate 18 18 18 Blood Pressure 101/57 L 122/68 Pulse Oximetry 99 99 99 Oxygen Delivery Room Air Fraction of Inspired Oxygen 21 12/24/24 06:00 Temperature 98.8 F Pulse Rate 101 H Respiratory Rate 18 Blood Pressure 125/67 Pulse Oximetry 100 Oxygen Delivery Fraction of Inspired Oxygen Intake/Output Intake/Output: Intake & Output 12/21/24 12/22/24 12/23/24 12/24/24 23:59 23:59 23:59 23:59 Intake Total 3250 2746.9 820 786 Output Total 3200 Balance 3250 -453.1 820 786 Meds/Results Medications: Active Medications Generic Name Dose Route Start Last Admin Trade Name Freq PRN Reason Stop Dose Admin Acetaminophen 650 mg 12/21/24 21:45 12/23/24 09:13 Acetaminophen 325 Mg Tablet PO 650 mg Q6H PRN Administration Mild Pain (1-3) or Fever Dextrose 12.5 gm 12/22/24 08:20 Dextrose 50% 25 Gm/50 Ml Syringe IV PUSH PRN PRN Hypoglycemia Protocol Enoxaparin Sodium 40 mg 12/22/24 09:00 12/24/24 08:43 Enoxaparin 40 Mg/0.4 Ml Syringe SUB-Q 40 mg DAILY DESTINY Administration Glucagon 1 mg 12/22/24 08:20 Glucagon For Inj 1 Mg Vial IM PRN PRN Hypoglycemia Protocol Glucose 15 gm 12/22/24 08:20 Glucose Oral Gel 15 Gm Of Glucse In 37.5 Gm Tube PO PRN PRN Hypoglycemia Protocol Dextrose 1,000 mls @ 100 mls/hr 12/22/24 08:20 Dextrose 5% 1,000 Ml IVPB PRN PRN Hypoglycemia Protocol Insulin Aspart 4 - 8 units 12/22/24 17:00 12/24/24 08:44 Insulin Aspart (*Bkc) 100 Units/Ml SUB-Q Not Given TIDWM DEST[facility] Protocol Insulin Aspart 2 - 4 units 12/22/24 21:00 12/23/24 20:30 Insulin Aspart (*Bkc) 100 Units/Ml SUB-Q Not Given HS DESTINY Protocol Levofloxacin 750 mg 12/22/24 11:15 12/24/24 08:44 Levofloxacin 750 Mg Tablet PO 750 mg DAILY DESTINY Administration Metoclopramide HCl 10 mg 12/23/24 11:56 12/23/24 12:04 Metoclopramide Hcl Inj 10 Mg/2 Ml Vial IV PUSH 10 mg Q6HR PRN Administration nausea Polyethylene Glycol 17 gm 12/21/24 21:45 Polyethylene Glycol 3350 17 Gm Powd.Pack PO QAM PRN Constipation Potassium Chloride 40 meq 12/23/24 09:50 12/23/24 17:31 Potassium Chloride 20 Meq Packet (For Liquid) PO 40 meq BID DESTINY Administration Radiology Results: ITS Impressions Chest X-Ray 12/21/24 12:32 IMPRESSION: 1. No acute cardiopulmonary disease. Labs Labs: Laboratory Results - last 24 hr 12/23/24 12/23/24 12/23/24 11:46 16:38 22:04 WBC RBC Hgb Hct MCV MCH MCHC RDW Plt Count MPV Sodium Potassium Chloride Carbon Dioxide Anion Gap BUN Creatinine Estim Creat Clear Calc Estimated GFR Glucose POC Capillary Glucose 91 180 H 199 H Calcium Magnesium Total Bilirubin AST ALT Alkaline Phosphatase Total Protein Albumin 12/24/24 12/24/24 05:55 08:17 WBC 7.0 RBC 3.74 L Hgb 11.7 L Hct 34.9 L MCV 93.3 MCH 31.3 MCHC 33.5 RDW 14.2 Plt Count 261 MPV 9.7 Sodium 140 Potassium 3.4 Chloride 104 Carbon Dioxide 32 H Anion Gap 4 BUN 4 L Creatinine 0.47 L Estim Creat Clear Calc 113 Estimated GFR > 60 Glucose 99 POC Capillary Glucose 116 H Calcium 8.4 Magnesium 2.0 Total Bilirubin 0.2 AST 24 ALT 13 Alkaline Phosphatase 56 Total Protein 5.0 L Albumin 2.7 L
--- NOTE | 2024-12-24 16:07 | PM.DS ---
DS: Admitting Diagnosis Discharge Date 12/24/24 Admitting Diagnosis (1) Type I diabetes mellitus: Code(s): E10.9 - Type 1 diabetes mellitus without complications Status: Acute (2) DKA (diabetic ketoacidosis): Code(s): E11.10 - Type 2 diabetes mellitus with ketoacidosis without coma Status: Acute (3) Abnormal thyroid blood test: Code(s): R79.89 - Other specified abnormal findings of blood chemistry Status: Acute (4) Hypokalemia: Code(s): E87.6 - Hypokalemia Status: Acute (5) Urinary tract infection: Code(s): N39.0 - Urinary tract infection, site not specified Status: Acute (6) Pyelonephritis: Code(s): N12 - Tubulo-interstitial nephritis, not specified as acute or chronic Status: Acute DS: Discharge Diagnosis Discharge Diagnosis (1) Type I diabetes mellitus: Code(s): E10.9 - Type 1 diabetes mellitus without complications Status: Acute (2) DKA (diabetic ketoacidosis): Code(s): E11.10 - Type 2 diabetes mellitus with ketoacidosis without coma Status: Acute (3) Abnormal thyroid blood test: Code(s): R79.89 - Other specified abnormal findings of blood chemistry Status: Acute (4) Hypokalemia: Code(s): E87.6 - Hypokalemia Status: Acute (5) Urinary tract infection: Code(s): N39.0 - Urinary tract infection, site not specified Status: Acute (6) Pyelonephritis: Code(s): N12 - Tubulo-interstitial nephritis, not specified as acute or chronic Status: Acute DS: Summary Hospital Course Hospital Course: This is a pleasant 24-year-old female type 1 diabetes mellitus who presented to the emergency department with complaints of shortness of breath and racing heart. The patient provides the following history. Nearly a month ago she had a sinus infection and took antibiotics however does not feel as though she ever got back to baseline. Her diabetes is not well controlled with a reported recent hemoglobin A1c of 12.1% however the last week or so however she has noticed that her glucose has been higher than usual. Despite increasing her insulin boluses, her glucose has remained high. These past several days she has developed sensations of racing heart and mild shortness of breath. She also reports urinary urgency and frequency as well as aching discomfort in the left mid back. She has had chills but denies fever and sweats. She also denies blurry vision, sore throat, cough, chest and pleuritic pain, vomiting, and diarrhea. In the ED: Vital signs on arrival include a temperature of 97.2?, blood pressure 108/69, pulse 130, respiratory 18, SpO2 100% on room air. VBG showed a pH of 7.233, pCO2 32.9, HC03 13.6. Labs were significant for WBC count 7.9, hemoglobin 14.6, sodium 137, potassium 3.8, chloride 105, carbon dioxide 11, anion gap 21, creatinine 0.49, glucose 282, phosphorus 1.8. Urinalysis was positive for 1+ protein, 3+ glucose, 4+ ketones, trace leukocyte esterase, 50 to 100 WBC, 2+ bacteria, and many squamous cells. Chest x-ray showed no acute cardiopulmonary disease. She was given a 3000 mL normal saline bolus and potassium supplementation. She was also given levofloxacin for suspected urinary tract infection. She was admitted to the ICU in this setting with DKA, and received on insulin drip Patient was moved to floor after DKA resolved The following med issues have been addressed during hospitalization Urinary tract infection: Code(s): N39.0 - Urinary tract infection, site not specified Status: Acute Assessment and Plan: UA abnormal insisted of UTI. Patient on Levaquin that was started in the ER. urine culture: No growth Stop antibiotic (2) Hypokalemia: Code(s): E87.6 - Hypokalemia Status: Acute Assessment and Plan: Patient is currently receiving replacement Corrected (3) Diabetic ketoacidosis: Code(s): E11.10 - Type 2 diabetes mellitus with ketoacidosis without coma Status: Acute Assessment and Plan: Patient presented with labs concerning of DKA. initial IV insulin bolus and IV fluid bolus patient 9 gap had closed. acidosis persists c/w insulin infusion with IV fluids with dextrose Replace electrolytes as needed Consult dietitian and prosthodontist/educator Patient was provided x ray developer's office phone number, patient has scheduled appointment with x ray developer for follow-up after discharge DKA resolved (4) Abnormal thyroid blood test: Code(s): R79.89 - Other specified abnormal findings of blood chemistry Status: Acute Assessment and Plan: TSH was low, free T4 was normal and free T3 level was low on check in the ER Patient states her physician regularly monitors her thyroid function and they have been normal as an outpatient. rechecked in 4 weeks as an outpatient to a certain whether thyroid function normalizes considering this may be due to current illness Time Spent with Patient Time attestation: Total time spent providing and/or coordinating discharge services: Exam Narrative: GENERAL: Pleasant, in no acute distress. Well-nourished. - EYES: EOMI. Anicteric. - HENT: Moist mucous membranes. - LUNGS: Clear to auscultation bilaterally, no wheezing, rhonchi, or rales. - CARDIOVASCULAR: Regular rate and rhythm. No murmur. No JVD. - ABDOMEN: Soft, non-tender and non-distended. No palpable masses. - EXTREMITIES: No edema. Peripheral pulses 2+. Non-tender. - NEUROLOGIC: No focal neurological deficits. CN II-XII grossly intact. - PSYCHIATRIC: Awake, Alert and oriented x 3. Appropriate mood and affect. - SKIN: No rashes or lesions. Warm. - LYMPH: No cervical lymphadenopathy. DS: Data Data Completed and Pending Labs on day of discharge: Labs from last 24 hours 12/24/24 12/24/24 12/23/24 08:17 05:55 22:04 WBC 7.0 RBC 3.74 L Hgb 11.7 L Hct 34.9 L MCV 93.3 MCH 31.3 MCHC 33.5 RDW 14.2 Plt Count 261 MPV 9.7 Sodium 140 Potassium 3.4 Chloride 104 Carbon Dioxide 32 H Anion Gap 4 BUN 4 L Creatinine 0.47 L Estim Creat Clear Calc 113 Estimated GFR > 60 Glucose 99 POC Capillary Glucose 116 H 199 H Calcium 8.4 Magnesium 2.0 Total Bilirubin 0.2 AST 24 ALT 13 Alkaline Phosphatase 56 Total Protein 5.0 L Albumin 2.7 L 12/23/24 16:38 WBC RBC Hgb Hct MCV MCH MCHC RDW Plt Count MPV Sodium Potassium Chloride Carbon Dioxide Anion Gap BUN Creatinine Estim Creat Clear Calc Estimated GFR Glucose POC Capillary Glucose 180 H Calcium Magnesium Total Bilirubin AST ALT Alkaline Phosphatase Total Protein Albumin Discharge Plan Discharge Attending physician on discharge: Damon Mendoza Consulting providers: Allan Michaud Discharging Clinician: Damon Mendoza Anticipated Discharge Date/Time: 12/24/24 10:25 Patient Disposition: Home, Self-Care Activity: as tolerated Diet: as tolerated and heart healthy Patient Instructions: Antibiotic Form Patient Language: Citizen Of [place] Stand Alone Forms: General Discharge Information, Work/School Release IP Follow-up/Referrals: Sonny,Kwan Trotter M.D. [Primary Care Provider] - (See primary care doctor in 1 week) Discharge Medications: New insulin aspart U-100 [Novolog U-100 Insulin aspart] 100 unit/mL Solution 4 - 8 unit subcut TIDWM Qty: 10 1RF Protocol: Insulin Corrective High-Dose Condition: glucose < 70 mg/dl Dose/Route: Follow hypoglycemia order Condition: glucose 70-200 mg/dl Dose/Route: No additional insulin Condition: glucose 201-250 mg/dl Dose/Route: 4 units sub-Q Condition: glucose 251-300 mg/dl Dose/Route: 5 units sub-Q Condition: glucose 301-350 mg/dl Dose/Route: 6 units sub-Q Condition: glucose 351-400 mg/dl Dose/Route: 8 units sub-Q Condition: glucose > 400 mg/dl Dose/Route: Call MD Protocol Text: *No Correction Dose at Bedtime* Rx Instructions: Instruction glucose < 70 mg/dl Follow hypoglycemia order glucose 70-200 mg/dl No additional insulin glucose 201-250 mg/dl 2 units sub-Q glucose 251-300 mg/dl 2 units sub-Q glucose 301-350 mg/dl 3 units sub-Q glucose 351-400 mg/dl 4 units sub-Q glucose > 400 mg/dl Call MD potassium chloride 20 mEq Packet 20 meq PO DAILY Qty: 10 0RF Continued insulin lispro [Humalog U-100 Insulin] 100 unit/mL solution 1 sliding scale dose subcut [id number] Rx Instructions: Pt has insulin pump Date of admission: 12/21/24 17:20 Primary Care Provider: SonnyKwan Admitting Provider: Michael Amaya Attending physician on admission: Michael Amaya Condition: Stable
== END 2024-12-24 12:57 | disposition home or self-care (01) | DRG 638 ==
LOC: ANHED 16:36 → ANHICU 12-22 14:38 → ANH3MEDSUR 12-24 10:26 → ANHICU 12-27 14:41
PROVIDERS: Internal Medicine; Physician Assistant; Admitting Provider General Practice; Emergency Provider Emergency Medicine; PCP Family Medicine; Visit Provider Hospitalist
DX: E10.10 Type 1 diabetes mellitus with ketoacidosis without coma (principal); N12 Tubulo-interstitial nephritis, not specified as acute or chronic; E87.6 Hypokalemia; R79.89 Other specified abnormal findings of blood chemistry; Z20.822 Contact with and (suspected) exposure to COVID-19; Z79.4 Long term (current) use of insulin
CPT/HCPCS: 36415; 71046; 80048; 80053; 80307; 81001; 81025; 82803; 82948; 83605; 83690; 83735; 83880; 84100; 84439; 84443; 84480; 84484; 85025; 85027; 85380; 85610; 85730; 87086; 87637; 87641; 93005; 96365; 96366; 96367; 99285; A9270; J0613; J1650; J1815; J1956; J2765; J3475; J3480; J7030; J7040; J7050; J7120